=== PATIENT | male | born 1970 ===

== ENCOUNTER 2016-09-10 06:05 | Inpatient (IN) ==
[2016-09-10] MEDS ORDERED: GLUCAGON 1 MG VIAL IM PRN (07:32)
[2016-09-10] MEDS ORDERED: ONDANSETRON 4 MG/2 ML VIAL IV PRN (07:32)
[2016-09-10] MEDS ORDERED: ACETAMINOPHEN 325 MG TABLET PO PRN (07:32)
[2016-09-10] MEDS ORDERED: DEXTROSE 50% 25 GM/50 ML VIAL IV PRN (07:32)
[2016-09-10] MEDS ORDERED: CHLORHEXIDINE 4% SOLN 118 ML BOTTLE TOP ONE (07:36)
[2016-09-10] MEDS ORDERED: SKIN HEALING OINT (AQUAPHOR) 50 GM TUBE TOP PRN (07:36)
--- NOTE | 2016-09-10 08:51 | General Surg History&Physical ---
Assessment and Plan (1) Abscess of right foot Status: Acute Assessment and plan: 09/10/16 Abscess of right plantar foot/heel area. This looks like it involves the deeper structures. He has gotten a CT at [facility], and we will review this as soon as it has been loaded in our Synapse. Our plan is to take him to surgery tomorrow and do some type of unroofing of this abscess he will need debridement at this point we are not able to determine the extent of this and we have explained this to him. We were hoping to avoid making a plantar incision, however we may have to take this approach in order to adequately clear the area of infection. Another consideration is to evaluate this area for possible osteomyelitis. We will also plan to tightly control his glucoses. Patient is not exhibiting any neurological symptoms at this time, so we will just plan watchful waiting at this point and plan to consult hospitalist only if he has any other medical issues. Current Visit: Yes History of Present Illness Chief complaint: Abscess of right plantar foot History of present illness: Mr. Godinez is a 45 year old male Home Medications Medication Instructions Recorded Confirmed Type Aspirin EC Tab 325 mg PO DAILY #100 tablet 12/07/14 08/19/16 Rx Cyanocobalamin Tab [Vitamin B12 1,000 mcg PO DAILY #30 tablet 03/19/15 08/19/16 Rx Tab] Lisinopril [Prinivil] 10 mg PO DAILY tablet 03/19/15 08/19/16 Rx Gabapentin Cap/Tab [Neurontin 100 mg PO BEDTIME 09/22/15 08/19/16 History Cap/Tab] Pantoprazole Tab [Protonix Tab] 40 mg PO DAILY 09/22/15 08/19/16 History Carvedilol [Coreg] 6.25 mg PO BID 07/08/16 08/19/16 History Glimepiride 2 mg PO DAILY 07/08/16 08/19/16 History amLODIPine [Norvasc] 10 mg PO DAILY 07/08/16 08/19/16 History metFORMIN [Glucophage] 500 mg PO BID W/MEALS 07/08/16 08/19/16 History Bacitracin/Polymyxin Oint 1 applic TOP DAILY #1 applic 07/13/16 08/19/16 Rx [Polysporin Oint] Levofloxacin Tab [Levaquin Tab] 500 mg PO DAILY #10 tablet 07/13/16 08/19/16 Rx Acetaminophen Tab [Tylenol Tab] 650 mg PO Q6H PRN #0 tablet 08/24/16 Rx Apixaban [Eliquis] 2.5 mg PO BID #60 tablet 08/24/16 Rx Ciprofloxacin Tab [Cipro Tab] 500 mg PO Q12HR #20 tablet 08/24/16 Rx Collagenase Oint [Santyl Oint] 1 applic TOP DAILY #1 applic 08/24/16 Rx HYDROcodone/ACETAMIN 7.5-325 1 tablet PO Q8H PRN #20 tablet 08/24/16 Rx [[place] 7.5-325] Skin Healing Oint (Aquaphor) 1 applic TOP PRN PRN #0 applic 08/24/16 Rx [Aquaphor] Allergies Allergy/AdvReac Type Severity Reaction Status Date / Time No Known Allergies Allergy Unverified 03/17/15 18:53 Medical,Surgical,& Family Hx - Medical History Cardio: History of: Hypertension, PVD Neurology: History of: Cerebrovascular Accident (PT STATES CVA X 5, NO DEFICEITS ), Peripheral Neuropathy (Secondary to diabetes), TIA No history of: Seizures HEENT: History of: Dental Problems (has stitches from teeth being pulled 2 weeks ago disolving kind) Endocrine: History of: Diabetes Mellitus (IDDM), Dyslipidemia Rheumatology: History of;: Gout Respiratory: No history of: Respiratory Problems Gastrointestinal: History of: Liver Problems (cirrohsis) Musculoskeletal: History of: Amputation - Surgical History Cardiac Surgeries: Patient Denies: Femoral-Popliteal Bypass Graft, Cardiac Catheterization, Cardiac Surgery, Carotid Endarterectomy, Internal Defibrillator, Vascular Access Devices Thoracic Surgeries: Patient denies;: Organ Transplant, Lobectomy Neurologic Surgeries: Patient denies: Neurologic Surgery HEENT Surgeries: Patient denies: Carotid Endarterectomy, Thyroid Surgery, Tonsilectomy & Adenoidectomy Abdominal Surgeries: Surgical HX of: Hernia Repair Patient denies: Splenectomy Reproductive Surgeries: Patient denies;: Genitourinary Surgery Orthopedic Surgeries: Surgical HX of;: Orthopedic Surgery (dr. meyer follows last surgery march) - Family History Family History: Reports;: Family Diabetes, Family Heart Disease, Family Hypertension - Social History Smoking Status: Smoker, status unknown Exam - Constitutional General appearance: no acute distress - Head Head exam: Present: normocephalic - ENT Mouth exam: Present: dry mucosa, other (Poor dentition) - Neck Neck exam: Present: trachea midline. Absent: lymphadenopathy - Respiratory Respiratory exam: Present: clear to auscultation bilaterally. Absent: rales, rhonchi - Cardiovascular Cardiovascular exam: Present: RRR - GI/Abdominal GI/Abdominal exam: Present: hypoactive bowel sounds, soft. Absent: guarding, tenderness - Expanded Left Lower Foot/Toe exam: Present: amputation (Previous left transmetatarsal amputation; he has a 0.6 x 0.6 x 0.2cm lateral/plantar midfoot ulceration that is superficial, and he has a surrounding 1cm callous. There is a small amount of bloody drainage present that is primarily associated with the callus. There is no redness, no induration, no fluctuance, no tenderness present). Absent: swelling Neuro vascular tendon exam: Present: decreased fine/light touch. Absent: pallor Right Lower Foot/Toe exam: Present: erythema (Moderate erythema from the midfoot proximally encompassing the heel. There is at least 2 purpuric papules adjacent to a deep ulcer that is 0.8 x 0.8 x 2cm. It is moderately tender to touch, tense, erythematous, and indurated. Calcaneus tenderness as well as tenderness with plantar flexion; this extends to the achilles tendon and there does appear to be some resolving erythematous skin change present here. No edema of the ankle or leg, no fluctuance outside the plantar heel area. ) Neuro vascular tendon exam: Present: decreased fine/light touch - Neurological Neurological: Absent: dizziness, syncope Quality Measures - VTE Contraindication to Pharmacological VTE Prophylaxis: High Risk of Bleeding
--- NOTE | 2016-09-10 09:41 | EKG Report ---
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
[2016-09-10 10:05] LABS: Basophils % 0.4 % (0.0-0.8); Eosinophils # 0.4 10*3/uL (0.0-0.87); Eosinophils % 4.6 % (0.00-10.9); Hematocrit 33.2 VOL% (42.0-52.0); Hemoglobin 11.4 GM/DL (14.0-18.0); Immature Granulocytes % 0.3 %; Immature Granulocytes Absolute 0.03 #; Lymphocytes # 2.1 10*3/uL (1.4-4.0); Lymphocytes % 21.9 % (21.2-54.2); Mean Corpuscular HGB Conc 34.3 GM/DL (32-36); Mean Corpuscular Hemoglobin 28 PG (27-34); Mean Corpuscular Volume 81.4 FL (87-102); Mean Platelet Volume 10.2 FL (9.6-12.0); Monocytes # 0.7 10*3/uL (0.11-0.8); Monocytes % 7.5 % (1.7-12.7); Neutrophils # 6.2 10*3/uL (1.4-7.4); Neutrophils % 65.3 % (38.7-73.9); Platelet Count 381 T/CUMM (130-400); Red Blood Count 4.08 MC/CUMM (3.8-5.5); Red Cell Distribution Width 13.3 % (9.3-17.3); White Blood Count 9.6 T/CUMM (4-12)
[2016-09-10 10:37] LABS: Albumin 2.6 G/DL (3.4-5.0); Bilirubin,Total 0.4 MG/DL (0.2-1.0); Calcium 8.5 MG/DL (8.5-10.1); Osmolality,Calculated 283.1 MOS/KG (273-304); Total Protein 6.3 G/DL (6.4-8.3)
[2016-09-10] MEDS: SODIUM HYPOCHLORITE 0.25% IRRIG 473 ML BOTTLE TOP SCH (10:46)
[2016-09-10] MEDS: CEFTAROLINE 600 MG in SODIUM CHLORIDE 0.9% 100 ML IV SCH ×2 (10:51→20:41)
[2016-09-10] MEDS: PANTOPRAZOLE 40 MG TABLET PO SCH (10:51)
[2016-09-10] MEDS: SODIUM CHLORIDE 0.45% 1,000 ML IV SCH ×3 (10:51→23:02)
[2016-09-10] MEDS: INSULIN REGULAR 100 UNIT/ML SUBCUT SCH ×3 (11:30→20:41)
--- NOTE | 2016-09-10 15:41 | XRay Report ---
XR chest 2V Indication: Shortness of breath. Chest 2 views: Comparison 07/09/2016. The heart size and mediastinal contour are normal. The lungs and pleural spaces are clear. Bones are unremarkable. Impression: Negative chest. PROCEDURE INTERPRETED AT [facility] DEPARTMENT OF RADIOLOGY Final Report Signed by: Laith Domingo M.D.
[2016-09-11 04:41] LABS: Basophils # 0.1 10*3/uL (0.0-0.2); Basophils % 0.6 % (0.0-0.8); Eosinophils # 0.6 10*3/uL (0.0-0.87); Eosinophils % 7.3 % (0.00-10.9); Hematocrit 31.1 VOL% (42.0-52.0); Hemoglobin 10.3 GM/DL (14.0-18.0); Immature Granulocytes % 0.4 %; Immature Granulocytes Absolute 0.03 #; Lymphocytes # 2.5 10*3/uL (1.4-4.0); Lymphocytes % 30.2 % (21.2-54.2); Mean Corpuscular HGB Conc 33.1 GM/DL (32-36); Mean Corpuscular Hemoglobin 28 PG (27-34); Mean Corpuscular Volume 83.2 FL (87-102); Mean Platelet Volume 10.9 FL (9.6-12.0); Monocytes # 0.7 10*3/uL (0.11-0.8); Monocytes % 8.3 % (1.7-12.7); Neutrophils # 4.4 10*3/uL (1.4-7.4); Neutrophils % 53.2 % (38.7-73.9); Platelet Count 355 T/CUMM (130-400); Red Blood Count 3.74 MC/CUMM (3.8-5.5); Red Cell Distribution Width 13.5 % (9.3-17.3); White Blood Count 8.3 T/CUMM (4-12)
[2016-09-11 05:19] LABS: Albumin 2.2 G/DL (3.4-5.0); Bilirubin,Total 0.6 MG/DL (0.2-1.0); Calcium 8.2 MG/DL (8.5-10.1); Osmolality,Calculated 281.4 MOS/KG (273-304); Potassium 4.2 MMOL/L (3.5-5.1); Total Protein 5.3 G/DL (6.4-8.3)
[2016-09-11] MEDS: INSULIN REGULAR 100 UNIT/ML SUBCUT SCH ×4 (07:57→20:54)
[2016-09-11] MEDS ORDERED: BUPIVACAINE 0.25% 50 ML VIAL ONE ×2 (08:24→08:48)
[2016-09-11] MEDS ORDERED: LIDOCAINE 2% 5 ML VIAL ONE (08:42)
[2016-09-11] MEDS ORDERED: PROPOFOL 200 MG/20 ML VIAL IV ONE (08:42)
--- NOTE | 2016-09-11 09:21 | Operative Note ---
Date of procedure: 09/11/16 Pre-op diagnosis: Diabetic ulcer right foot with abscess Post-op diagnosis: same Procedure: Operative note: Preoperative diagnosis: Diabetic ulcer right heel with abscess Postoperative diagnosis: Same Procedure: Excisional debridement of skin subcutaneous tissue right heel ulcer and abscess Surgeon Dr. Abdi Backend Tester Henrietta Reyez, [facility] Anesthesia managed anesthetic care with local Brief history: 45-year-old male who has had a diabetic ulcer of the right heel which when he was in here recently we were able to debride the ulcer itself along with some tissue underneath of it to get things under control there. He returned with a new area of erythematous and swelling onto the medial aspect of the heel. We felt that all we can do bring him in to try to debride this better and clean it up to in order to get some good care to it. Procedure: With patient supine position prepped and draped in a sterile fashion timeout and antibiotics completed we approach this area of the ulcer itself. The diabetic ulcer at the very bottom of the heel and the plantar surface is 0.8 x 0.6 cm in size and the depth goes deep towards the medial aspect of the heel. At that point we infiltrated with local anesthetic in this area. I then put the hemostat into the ulcer towards the abscessed area on the medial aspect of the heel we made an incision with a knife through the skin subtenons tissue on top of the hemostat to open this up widely. We encountered a large amount of dark necrotic fatty tissue in this area that would begin to debride away at this point taking that tissue for cultures. We then debrided a little extra skin around for there is additional skin changes and ulceration at the medial aspect of the heel. We then debrided the ulcer itself excising the skin around it and any deep necrotic fatty tissue at this time. We debrided until we had a clean bed that we then washed irrigated with saline solution and used electrocauterization control bleeding. We now have a wound that is 6 cm x 1.2 cm x 1.2 cm in size. Dressings were applied and the patient taken recovery room. Estimated blood loss 5 cc Sponge count correct 2 Drains none Complications none Condition stable satisfactory Anesthesia: MAC, local (0.25% Marcaine plain mixed [id number] 1% Xylocaine plain) Surgeon / Physician: Amandeep Abdi Backend Tester: Henrietta Reyez Estimated blood loss: other (5 cc) Specimens: other (Tissue for cultures and pathology) Condition: stable Disposition: floor Results - Labs CBC & BMP: 09/11/16 03:24 09/11/16 03:24 Discharge Plan - Discharge Medications No Action Aspirin EC Tab 325 mg PO DAILY #100 tablet Cyanocobalamin Tab [Vitamin B12 Tab] 1,000 mcg PO DAILY #30 tablet Lisinopril [Prinivil] 10 mg PO DAILY tablet Pantoprazole Tab [Protonix Tab] 40 mg PO DAILY Gabapentin Cap/Tab [Neurontin Cap/Tab] 100 mg PO BEDTIME Glimepiride 2 mg PO DAILY Carvedilol [Coreg] 6.25 mg PO BID amLODIPine [Norvasc] 10 mg PO DAILY Bacitracin/Polymyxin Oint [Polysporin Oint] 1 applic TOP DAILY #1 applic Acetaminophen Tab [Tylenol Tab] 650 mg PO Q6H PRN #0 tablet PRN Reason: Pain Mild (1-3) And/Or Fever Collagenase Oint [Santyl Oint] 1 applic TOP DAILY #1 applic Skin Healing Oint (Aquaphor) [Aquaphor] 1 applic TOP PRN PRN #0 applic PRN Reason: Dry Skin metFORMIN [Glucophage] 500 mg PO BID W/MEALS Apixaban [Eliquis] 2.5 mg PO BID #60 tablet HYDROcodone/ACETAMIN 7.5-325 [[place] 7.5-325] 1 tablet PO Q8H PRN #20 tablet PRN Reason: Pain Moderate (4-7) - Follow Up or Referral - Forms/Instructions
[2016-09-11] MEDS ORDERED: ONDANSETRON 4 MG/2 ML VIAL IV PRN (09:22)
[2016-09-11] MEDS ORDERED: BISACODYL 5 MG TABLET PO PRN (09:22)
--- NOTE | 2016-09-11 09:28 | Anesthesia Post-Op ---
Anesthesia Post OP - Post Ansesthetic Evaluation Patient seen in post op: Yes Resp: within normal limits CV: within normal limits Mental: within normal limits Temp: within normal limits [id number]: within normal limits Nausea and Vomiting: within normal limits Pain: within normal limits
[2016-09-11] MEDS ORDERED: MIDAZOLAM 2 MG/2 ML VIAL ONE (09:31)
[2016-09-11] MEDS ORDERED: fentaNYL 100 MCG/2 ML VIAL ONE (09:31)
[2016-09-11] MEDS ORDERED: SKIN HEALING OINT (AQUAPHOR) 50 GM TUBE TOP PRN (11:01)
[2016-09-11] MEDS: CEFTAROLINE 600 MG in SODIUM CHLORIDE 0.9% 100 ML IV SCH ×2 (11:26→21:39)
[2016-09-11] MEDS: SODIUM CHLORIDE 0.45% 1,000 ML IV SCH ×2 (16:23→19:11)
[2016-09-11] MEDS: PANTOPRAZOLE 40 MG TABLET PO SCH (16:24)
[2016-09-11] MEDS: ceFAZolin 2,000 MG in PREMIX 1 EACH IV SCH ×2 (16:25→22:59)
[2016-09-11] MEDS: SODIUM HYPOCHLORITE 0.25% IRRIG 473 ML BOTTLE TOP SCH (16:27)
[2016-09-11] MEDS: CARVEDILOL 6.25 MG TABLET PO SCH (21:38)
[2016-09-11] MEDS: GABAPENTIN 100 MG CAPSULE PO SCH (21:39)
[2016-09-12] MEDS: SODIUM CHLORIDE 0.45% 1,000 ML IV SCH ×3 (01:19→17:33)
[2016-09-12] MEDS: ENOXAPARIN 40 MG/0.4 ML SYRINGE SUBCUT SCH (04:20)
[2016-09-12 06:11] LABS: Basophils # 0.1 10*3/uL (0.0-0.2); Basophils % 0.5 % (0.0-0.8); Eosinophils # 0.7 10*3/uL (0.0-0.87); Hematocrit 29.8 VOL% (42.0-52.0); Hemoglobin 9.8 GM/DL (14.0-18.0); Immature Granulocytes % 0.2 %; Immature Granulocytes Absolute 0.02 #; Lymphocytes # 2.7 10*3/uL (1.4-4.0); Lymphocytes % 26.9 % (21.2-54.2); Mean Corpuscular HGB Conc 32.9 GM/DL (32-36); Mean Corpuscular Hemoglobin 28 PG (27-34); Mean Corpuscular Volume 84.2 FL (87-102); Mean Platelet Volume 10.8 FL (9.6-12.0); Monocytes # 0.7 10*3/uL (0.11-0.8); Monocytes % 7.3 % (1.7-12.7); Neutrophils # 5.8 10*3/uL (1.4-7.4); Neutrophils % 58.1 % (38.7-73.9); Platelet Count 351 T/CUMM (130-400); Red Blood Count 3.54 MC/CUMM (3.8-5.5); Red Cell Distribution Width 13.6 % (9.3-17.3)
[2016-09-12 07:02] LABS: Calcium 7.9 MG/DL (8.5-10.1); Osmolality,Calculated 282.1 MOS/KG (273-304); Potassium 4.3 MMOL/L (3.5-5.1)
[2016-09-12] MEDS: INSULIN REGULAR 100 UNIT/ML SUBCUT SCH ×4 (08:43→21:05)
[2016-09-12] MEDS: CEFTAROLINE 600 MG in SODIUM CHLORIDE 0.9% 100 ML IV SCH ×2 (09:29→21:38)
[2016-09-12] MEDS: LISINOPRIL 10 MG TABLET PO SCH (09:31)
[2016-09-12] MEDS: ASPIRIN EC 325 MG TABLET PO SCH (09:32)
[2016-09-12] MEDS: CARVEDILOL 6.25 MG TABLET PO SCH ×2 (09:32→21:08)
[2016-09-12] MEDS: amLODIPine 10 MG TABLET PO SCH (09:32)
[2016-09-12] MEDS: PANTOPRAZOLE 40 MG TABLET PO SCH (09:33)
[2016-09-12] MEDS: CYANOCOBALAMIN 500 MCG TABLET PO SCH (09:33)
[2016-09-12] MEDS: GLIMEPIRIDE 2 MG TABLET PO SCH (09:33)
[2016-09-12] MEDS: HYDROmorphone 2 MG/1 ML VIAL IV PRN ×2 (09:39→19:49)
[2016-09-12] MEDS: BACITRACIN/POLYMYXIN OINT 14.17 GM TUBE TOP SCH (09:46)
--- NOTE | 2016-09-12 11:29 | Event Note ---
09/12/2016 Patient is afebrile he is postop from debridement of this right heel abscess. Wound care starting today and cultures are pending. Will maintain present level of care until we can see what his cultures are and modify things from there.
[2016-09-12] MEDS: SODIUM HYPOCHLORITE 0.25% IRRIG 473 ML BOTTLE TOP SCH (12:50)
[2016-09-12] MEDS: GABAPENTIN 100 MG CAPSULE PO SCH (21:08)
[2016-09-13] MEDS: SODIUM CHLORIDE 0.45% 1,000 ML IV SCH ×3 (01:42→19:53)
[2016-09-13] MEDS: ENOXAPARIN 40 MG/0.4 ML SYRINGE SUBCUT SCH (03:34)
[2016-09-13] MEDS: INSULIN REGULAR 100 UNIT/ML SUBCUT SCH ×4 (07:30→21:30)
--- NOTE | 2016-09-13 09:21 | Event Note ---
09/13/2016. Patient is doing fairly well at this time, see if we can get him a special shoe to try to offload the weight on that heel. Cultures are still pending and hopefully that will be out tomorrow to know what antibiotics to send him home alone. Be difficult to arrange for good care on this patient at this time due to his general circumstances but will see what we can do to get him set up with [facility] an attempt to get consistent care to this area.
[2016-09-13] MEDS: GLIMEPIRIDE 2 MG TABLET PO SCH (11:41)
[2016-09-13] MEDS: CYANOCOBALAMIN 500 MCG TABLET PO SCH (11:51)
[2016-09-13] MEDS: ASPIRIN EC 325 MG TABLET PO SCH (11:52)
[2016-09-13] MEDS: CARVEDILOL 6.25 MG TABLET PO SCH ×2 (11:52→20:41)
[2016-09-13] MEDS: LISINOPRIL 10 MG TABLET PO SCH (11:53)
[2016-09-13] MEDS: amLODIPine 10 MG TABLET PO SCH (11:53)
[2016-09-13] MEDS: PANTOPRAZOLE 40 MG TABLET PO SCH (11:54)
[2016-09-13] MEDS: CEFTAROLINE 600 MG in SODIUM CHLORIDE 0.9% 100 ML IV SCH ×2 (11:54→20:42)
[2016-09-13] MEDS: GABAPENTIN 100 MG CAPSULE PO SCH (20:41)
[2016-09-14] MEDS: BACITRACIN/POLYMYXIN OINT 14.17 GM TUBE TOP SCH ×2 (01:28→11:24)
[2016-09-14] MEDS: SODIUM HYPOCHLORITE 0.25% IRRIG 473 ML BOTTLE TOP SCH ×2 (01:28→11:23)
[2016-09-14] MEDS: ENOXAPARIN 40 MG/0.4 ML SYRINGE SUBCUT SCH (03:03)
[2016-09-14] MEDS: SODIUM CHLORIDE 0.45% 1,000 ML IV SCH ×2 (06:23→13:15)
[2016-09-14 06:44] LABS: Basophils # 0.1 10*3/uL (0.0-0.2); Basophils % 0.6 % (0.0-0.8); Eosinophils # 0.7 10*3/uL (0.0-0.87); Eosinophils % 7.7 % (0.00-10.9); Hematocrit 29.5 VOL% (42.0-52.0); Hemoglobin 9.7 GM/DL (14.0-18.0); Immature Granulocytes % 0.5 %; Immature Granulocytes Absolute 0.04 #; Lymphocytes # 2.6 10*3/uL (1.4-4.0); Mean Corpuscular HGB Conc 32.9 GM/DL (32-36); Mean Corpuscular Hemoglobin 28 PG (27-34); Mean Corpuscular Volume 84.8 FL (87-102); Mean Platelet Volume 10.8 FL (9.6-12.0); Monocytes # 0.6 10*3/uL (0.11-0.8); Monocytes % 6.5 % (1.7-12.7); Neutrophils # 4.8 10*3/uL (1.4-7.4); Neutrophils % 54.7 % (38.7-73.9); Platelet Count 346 T/CUMM (130-400); Red Blood Count 3.48 MC/CUMM (3.8-5.5); Red Cell Distribution Width 13.9 % (9.3-17.3); White Blood Count 8.8 T/CUMM (4-12)
[2016-09-14 07:11] LABS: Calcium 8.3 MG/DL (8.5-10.1); Magnesium 2.2 MG/DL (1.8-2.4); Potassium 4.2 MMOL/L (3.5-5.1)
[2016-09-14] MEDS: INSULIN REGULAR 100 UNIT/ML SUBCUT SCH ×4 (08:26→21:15)
[2016-09-14] MEDS: ASPIRIN EC 325 MG TABLET PO SCH (08:47)
[2016-09-14] MEDS: PANTOPRAZOLE 40 MG TABLET PO SCH (08:47)
[2016-09-14] MEDS: CYANOCOBALAMIN 500 MCG TABLET PO SCH (08:47)
[2016-09-14] MEDS: amLODIPine 10 MG TABLET PO SCH (08:47)
[2016-09-14] MEDS: CARVEDILOL 6.25 MG TABLET PO SCH ×2 (08:47→21:17)
[2016-09-14] MEDS: LISINOPRIL 10 MG TABLET PO SCH (08:47)
[2016-09-14] MEDS: CEFTAROLINE 600 MG in SODIUM CHLORIDE 0.9% 100 ML IV SCH ×2 (08:47→21:17)
[2016-09-14] MEDS: GLIMEPIRIDE 2 MG TABLET PO SCH (09:32)
--- NOTE | 2016-09-14 11:24 | Pathology Report from [facility] ---
ACCESSION # : [id number] PATIENT NAME : Tien Dexter ORDERING DR : CANDY HINKLE MD CLINICAL HX: Right foot abscess POST-OP DX: Same SPECIMEN INFO: Right heel tissue GROSS DESCRIPTION: The specimen is received in formalin labeled "TIEN DEXTER /RIGHT HEEL" consists of a 2.9 x 0.6 x 0.7 cm debrided regalado-pink fragments of skin. Also in container are is a 2.5 x 0.8 x 0.7 cm regalado-sanders fragment of skin. Health Assessment And Treatment Teacher sections of each are submitted in one cassette. DIAGNOSIS FOR TIEN DEXTER: RIGHT HEEL, DEBRIDEMENT: Skin ulceration with reactive epithelial hyperplasia and cellulitis. SERVICE DATE: 09/11/2016 REPORT DATE: 09/14/2016 PATHOLOGIST: French Luu M.D. [facility]
--- NOTE | 2016-09-14 11:57 | General Surgery Progress Note ---
Assessment and Plan - Time spent with patient Time spent with patient: Less than 30 minutes (1) Abscess of right foot Status: Acute Assessment and plan: 09/14/2016 Abscess of right foot is improving postop. He seems to be doing well, and we are now awaiting the final cultures. We have also ordered offloading Darco shoes, and he will need these before we discharge. I am planning to trim the callus on the left transmetatarsal stump before he goes as well. Looking at discharge tomorrow. 09/10/16 Abscess of right plantar foot/heel area. This looks like it involves the deeper structures. He has gotten a CT at [facility], and we will review this as soon as it has been loaded in our Synapse. Our plan is to take him to surgery tomorrow and do some type of unroofing of this abscess he will need debridement at this point we are not able to determine the extent of this and we have explained this to him. We were hoping to avoid making a plantar incision, however we may have to take this approach in order to adequately clear the area of infection. Another consideration is to evaluate this area for possible osteomyelitis. We will also plan to tightly control his glucoses. Patient is not exhibiting any neurological symptoms at this time, so we will just plan watchful waiting at this point and plan to consult hospitalist only if he has any other medical issues. Current Visit: Yes Subjective Patient reports: Present: no new complaints, feels better, pain is less, tolerating a regular diet Exam - Constitutional Vitals: Period Temp Pulse Resp BP Sys/Grande Pulse Ox Last 24 Hr 97.5 F-98.8 F 68-76 17-20 124-169/73-100 91-100 General appearance: no acute distress - Extremities Exam Extremities exam: Present: other (Right lower extremity wound is clean with a pink base. The wound bed shows signs of early granulation. There is no erythema, no induration. I see no gross purulence. It is not unusually tender. There is no edema of the extremity. Left lower extremity with a small firm callus area on the plantar surface of the left transmetatarsal amputation site. There is a small superficial ulcer that looks clean, however, unable to evaluate this well due to callus. This needs to be trimmed before he leaves.) Results - Labs CBC & BMP: 09/14/16 05:27 05/08/17 05:27 Lab Results: I have reviewed the past 24 hour labs (Labs are stable. Microbe preliminary shows gram positives.) Quality Measures - VTE Contraindication to Mechanical VTE Prophylaxis: Vascular Ulceration
[2016-09-14] MEDS: GABAPENTIN 100 MG CAPSULE PO SCH (21:17)
[2016-09-15] MEDS: ENOXAPARIN 40 MG/0.4 ML SYRINGE SUBCUT SCH (03:47)
[2016-09-15] MEDS: SODIUM CHLORIDE 0.45% 1,000 ML IV SCH ×2 (06:17→07:01)
[2016-09-15] MEDS: INSULIN REGULAR 100 UNIT/ML SUBCUT SCH ×2 (08:02→11:42)
[2016-09-15] MEDS: amLODIPine 10 MG TABLET PO SCH (08:54)
[2016-09-15] MEDS: CYANOCOBALAMIN 500 MCG TABLET PO SCH (08:54)
[2016-09-15] MEDS: LISINOPRIL 10 MG TABLET PO SCH (08:54)
[2016-09-15] MEDS: CARVEDILOL 6.25 MG TABLET PO SCH (08:54)
[2016-09-15] MEDS: PANTOPRAZOLE 40 MG TABLET PO SCH (08:54)
[2016-09-15] MEDS: CEFTAROLINE 600 MG in SODIUM CHLORIDE 0.9% 100 ML IV SCH (08:55)
[2016-09-15] MEDS: GLIMEPIRIDE 2 MG TABLET PO SCH (08:55)
[2016-09-15] MEDS: ASPIRIN EC 325 MG TABLET PO SCH (08:55)
--- NOTE | 2016-09-15 10:33 | Discharge Summary ---
Hospital Course - Hospital Course Hospital Course: Brief summary: This 45-year-old [place] diabetic male with prior history of CVA and left transmetatarsal amputation for PAD and diabetic foot ulcers was admitted as a direct admit from [facility]. He had been seen their clinic and found to have recurrent right heel abscess. He was evaluated as an outpatient by Dr. Rosa, who notified our office that the area seemed to be worsening and was found to be more fluctuant. On the day prior to admission did obtain an outpatient CT scan of the right lower extremity. The patient presented to the hospital with copy of his CT film, which upon review did show soft tissue swelling and abscess in the area of the right plantar heel. There was nothing on this scan to suggest osteomyelitis. He was admitted placed on IV antibiotics, and the preceeding day was taken to the OR, where an area of abscess was drained, with very little purulence initially encountered, however there was a good deal of chronically infected necrotic tissue found deep within the wound. This tissue was sent for culture, and the wound debrided with excisional debridement of the necrotic tissue skin and subcutaneous tissue in the deeper tissue about the ulcer. Postoperatively his blood sugars remained fairly well controlled, & he had no neurological signs and symptoms. Wound care was begun, and he initially had a good deal of discomfort with this, however he said he was able to tolerate it quite well. He was continued on Teflaro during his hospital course, and upon initiation of wound care, we were able to see the wound erythema resolved within the first 24-48 hours, no further necrotic tissue or purulence, and the swelling and tenderness also resolved. Medically he did remain stable with labs and vital signs returned to normal. Today we did have a preliminary culture that still shows gram-positive cocci, this has not had a final identification. We do have a final sensitivity showing on a staph epidermidis, however we are limited by the fact that there are only 3 medications that we might use for this, with the only p.o. choice being Zyvox. With the wound having responded well to the surgical drainage and debridement, and having a suitable p.o. antibiotic choice, we feel he has reached his maximum benefit from acute care facility, and therefore we will discharge him back to the care of his family and [facility] for outpatient wound care. He will be restarted on all his previous home medications, and we will add p.o. Zyvox 1 tablet p.o. twice daily for 1 week. We will plan to follow it up in our office in approximately 3 weeks unless there are problems sooner. - Time spent with patient Time with patient DS: Greater than 30 minutes Diagnosis - Discharge Diagnosis (1) Abscess of right foot Status: Acute (2) Abscess and cellulitis Status: Acute (3) Peripheral angiopathy due to DM Status: Chronic (4) Hypertension Status: Chronic (5) Diabetic ulcer of right foot associated with diabetes mellitus due to underlying condition Status: Acute Specialty Discharge - Follow Up or Referrals Follow up with: Amandeep Abdi MD [Family Provider] - (3 weeks) Discharge Plan - Discharge Data Disposition: Disch To Home/Self Care Condition at Discharge: Stable Discharge Diet: diabetic diet Activity: other (Use wheelchair as much as possible. Wear cast shoes to the left and custom Darco shoe to the right anytime you are on your feet.) Hygiene: may shower Weight Bearing at Discharge: other (See activity above.) Contact your physician if you experience:: fever over 101, Redness or swelling Wound / Dressing Care Instructions: Send a copy of the current wound care orders to [facility]. - Discharge Medications New Skin Healing Oint (Aquaphor) [Aquaphor] 1 applic TOP PRN PRN #1 applic PRN Reason: Dry Skin Sodium Hypochlorite 0.25% Irr [Dakins 1/2 Strength 0.25% Soln] 1 applic TOP DAILY #1 applic Linezolid Tab [Zyvox Tab] 600 mg PO Q12HR #14 tablet Continue Aspirin EC Tab 325 mg PO DAILY #100 tablet Cyanocobalamin Tab [Vitamin B12 Tab] 1,000 mcg PO DAILY #30 tablet Lisinopril [Prinivil] 10 mg PO DAILY tablet Pantoprazole Tab [Protonix Tab] 40 mg PO DAILY Gabapentin Cap/Tab [Neurontin Cap/Tab] 100 mg PO BEDTIME Glimepiride 2 mg PO DAILY Carvedilol [Coreg] 6.25 mg PO BID amLODIPine [Norvasc] 10 mg PO DAILY Bacitracin/Polymyxin Oint [Polysporin Oint] 1 applic TOP DAILY #1 applic Acetaminophen Tab [Tylenol Tab] 650 mg PO Q6H PRN #0 tablet PRN Reason: Pain Mild (1-3) And/Or Fever Collagenase Oint [Santyl Oint] 1 applic TOP DAILY #1 applic Skin Healing Oint (Aquaphor) [Aquaphor] 1 applic TOP PRN PRN #0 applic PRN Reason: Dry Skin metFORMIN [Glucophage] 500 mg PO BID W/MEALS Apixaban [Eliquis] 2.5 mg PO BID #60 tablet HYDROcodone/ACETAMIN 7.5-325 [[place] 7.5-325] 1 tablet PO Q8H PRN #20 tablet PRN Reason: Pain Moderate (4-7) - Follow Up or Referral Follow Up: Amandeep Abdi MD [Family Provider] - - Forms/Instructions Exam - Constitutional Vitals: Period Temp Pulse Resp BP Sys/Grande Pulse Ox Last 24 Hr 97.7 F-99.0 F 57-74 16-20 137-165/75-83 94-99 General appearance: normal weight, no acute distress - Head Head exam: Present: normocephalic - Respiratory Respiratory exam: Present: clear to auscultation bilaterally - Cardiovascular Cardiovascular exam: Present: regular rate and rhythm - GI/Abdominal GI/Abdominal exam: Present: hypoactive bowel sounds, soft. Absent: tenderness - Extremities Exam Extremities exam: Present: other (Right foot incision at the medial aspect of the heel is clean and dry. There is no gross purulence. There is no induration. There is no erythema. He has good mobility of the ankle and heel. No swelling of the extremity. Left plantar foot with small callus and a 0.8 x 0.2 cm central superficial ulceration. There is no redness or drainage associated with this ulcer, however there is a small callus associated which was debrided in the room using a 15-gauge scalpel. There is no swelling to this extremity and I see no other breakdown of the transmetatarsal stump.) - Neurological Exam Neurological exam: Present: alert, oriented X3 Discharge Results Procedures and tests throughout hospitalization: Pending Orders 09/11/16 Tissue (Biopsy) Culture and GS Routine Labs on day of discharge: Labs from last 24 hours 09/15/16 09/14/16 09/14/16 07:10 19:57 16:20 POC Glucose 82 90 166 H 09/14/16 11:09 POC Glucose 98 Preliminary micro results at discharge 09/11/16 Unknown Tissue Culture - Preliminary Foot - Rt Lower Staphylococcus epidermidis MRS Gram Positive Cocci DS: Provider Date of admission: 09/11/16 09:22 Primary care physician: Garrick Artis MD Attending physician on admission: Amandeep Abdi MD Consults: 09/10/16 07:35 Consult to Wound Care [facility] [CONS] Routine Reason for Wound Care: Wound Care Management 09/10/16 08:16 Consult to Pharmacy [CONS] Routine Reason for Pharmacy Consult: Adjust Meds Renal Funct 09/10/16 09:08 Consult to Anesthesiology [CONS] Routine Consulting Provider: Reason for Anesthesiology: Pre-op Clearance 09/10/16 11:01 Consult to Pastoral Services [CONS] Routine Comment: Pastoral Screen: Request 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
[2016-09-15] MEDS: SODIUM HYPOCHLORITE 0.25% IRRIG 473 ML BOTTLE TOP SCH (15:10)
[2016-09-15] MEDS: BACITRACIN/POLYMYXIN OINT 14.17 GM TUBE TOP SCH (15:10)
[2016-09-15 17:36] VITALS: BP 147/77
== END 2016-09-15 16:04 | disposition home or self-care (01) | DRG 380 ==
LOC: N.3E → EDSTATUS 06:28
PROVIDERS: ADMIT Specialist; ATTEND Specialist

== ENCOUNTER 2020-08-05 15:22 | Inpatient (IN) ==
[2020-08-05] MEDS ORDERED: SODIUM CHLORIDE 0.9% 1,000 ML IV STA (16:08)
[2020-08-05] MEDS ORDERED: ALBUTEROL 2.5 MG/3 ML NEB RESP TX STA (16:10)
[2020-08-05 16:40] LABS: Basophils # 0.1 10*3/uL (0.0-0.2); Basophils % 0.2 % (0.0-0.8); Hematocrit 32.6 VOL% (42.0-52.0); Hemoglobin 10.7 GM/DL (14.0-18.0); Immature Granulocytes % 1.2 %; Immature Granulocytes Absolute 0.32 #; Lymphocytes # 1.2 10*3/uL (1.4-4.0); Lymphocytes % 4.4 % (21.2-54.2); Mean Corpuscular HGB Conc 32.8 GM/DL (32-36); Mean Platelet Volume 11.2 FL (9.6-12.0); Monocytes % 2.6 % (1.7-12.7); Neutrophils % 91.6 % (38.7-73.9); Platelet Count 245 T/CUMM (130-400); Red Blood Count 3.79 MC/CUMM (3.8-5.5); Red Cell Distribution Width 14.1 % (9.3-17.3); White Blood Count 26.6 T/CUMM (4-12)
[2020-08-05] MEDS ORDERED: LEVOFLOXACIN INJ 750 MG in PREMIX 1 EACH IV STA (16:41)
[2020-08-05 17:04] LABS: Albumin 2.1 G/DL (3.4-5.0); Bilirubin,Total 2.4 MG/DL (0.2-1.0); Calcium 7.4 MG/DL (8.5-10.1); Osmolality,Calculated 283.8 MOS/KG (273-304); Potassium 3.6 MMOL/L (3.5-5.1); Total Protein 5.8 G/DL (6.4-8.2)
[2020-08-05] MEDS ORDERED: ACETAMINOPHEN 500 MG TABLET PO STA (17:15)
[2020-08-05 17:20] LABS: Band Neutrophils 1 % (0-10); Hypochromasia 1+; Lymphocytes 5 % (20-55); Microcytosis 1+; Platelet Estimate Adequate; Segmented Neutrophils 92 % (50-85); Total Cells Counted 100
[2020-08-05] MEDS ORDERED: NITROGLYCERIN 2% OINT 1 INCH/GM PACK TOP ONE (17:25)
[2020-08-05] MEDS ORDERED: NITROGLYCERIN 2% OINT 1 INCH/GM PACK TOP STA (17:25)
[2020-08-05] MEDS ORDERED: ENOXAPARIN 100 MG/ML SYRINGE SUBCUT STA (17:25)
[2020-08-05] MEDS ORDERED: ENOXAPARIN 100 MG/ML SYRINGE SUBCUT ONE (17:25)
[2020-08-05] MEDS ORDERED: ASPIRIN 325 MG TABLET ONE (17:25)
[2020-08-05] MEDS ORDERED: ASPIRIN 325 MG TABLET PO STA (17:25)
[2020-08-05] MEDS ORDERED: DEXTROSE 50% 25 GM/50 ML VIAL IV PRN (17:33)
[2020-08-05] MEDS ORDERED: GLUCAGON 1 MG VIAL IM PRN (17:33)
[2020-08-05 17:40] LABS: INR 1.2; PT Patient Result 12.8 SECS (9.8-11.9)
[2020-08-05] MEDS ORDERED: NITROGLYCERIN SL 0.4 MG TABLET SL PRN (17:51)
[2020-08-05] MEDS ORDERED: NICOTINE 14 MG/24 HR PATCH TRANSDERM PRN (18:35)
[2020-08-05] MEDS ORDERED: carvediloL 6.25 MG TABLET PO SCH (21:00)
[2020-08-05] MEDS: carvediloL 6.25 MG TABLET PO SCH (21:30)
[2020-08-05] MEDS: POTASSIUM CHLORIDE INJ 10 MEQ in LACTATED RINGERS 1,000 ML IV SCH (22:31)
[2020-08-05] MEDS: LINEZOLID INJ 600 MG in PREMIX 1 EACH IV SCH (22:34)
[2020-08-06 00:27] LABS: Amorphous Crystals,Urine Few /HPF (Few); Bilirubin,Urine Negative (Negative); Blood, Urine Large mg/dL (Negative); Glucose,Urine (UA) 150 mg/dL (Negative); Hyaline Casts,Urine 1 /LPF (0-3); Ketones,Urine Negative (Negative); Nitrite,Urine Negative (Negative); Protein,Urine >=500 MG/DL; Sperm,Urine Occasional /HPF (Negative); Squamous Epithelial Cell,Urine Occasional /HPF (0-10); Urine Appearance CLOUDY (Clear); Urine Color Amber (Yellow); Urine Specific Gravity 1.022 (1.001-1.035); Urine Urobilinogen < 2.0 EU/DL (0.2-1.0)
[2020-08-06 04:28] LABS: Basophils # 0.1 10*3/uL (0.0-0.2); Basophils % 0.2 % (0.0-0.8); Hematocrit 27.4 VOL% (42.0-52.0); Immature Granulocytes % 0.6 %; Immature Granulocytes Absolute 0.14 #; Lymphocytes # 1.7 10*3/uL (1.4-4.0); Mean Corpuscular HGB Conc 32.8 GM/DL (32-36); Mean Corpuscular Volume 84.8 FL (87-102); Mean Platelet Volume 11.7 FL (9.6-12.0); Monocytes % 4.5 % (1.7-12.7); Neutrophils % 86.7 % (38.7-73.9); Platelet Count 208 T/CUMM (130-400); Red Blood Count 3.23 MC/CUMM (3.8-5.5); Red Cell Distribution Width 13.9 % (9.3-17.3); White Blood Count 21.8 T/CUMM (4-12)
[2020-08-06 04:54] LABS: Albumin 1.7 G/DL (3.4-5.0); Calcium 6.8 MG/DL (8.5-10.1); Potassium 3.6 MMOL/L (3.5-5.1); Risk Ratio 4.46; Thyroid Stimulating Hormone 3.7 uIU/ml (0.358-3.74); Total Protein 5.5 G/DL (6.4-8.2); VLDL CHOLESTEROL 29.2 MG/DL
[2020-08-06 05:08] LABS: Band Neutrophils 1 % (0-10); Eosinophils 1 % (0-10); Hypochromasia 1+; Lymphocytes 8 % (20-55); Microcytosis 1+; Platelet Estimate Adequate; Segmented Neutrophils 85 % (50-85); Total Cells Counted 100
[2020-08-06] MEDS: INSULIN LISPRO 100 UNIT/ML SUBCUT SCH ×5 (07:30→21:07)
[2020-08-06] MEDS ORDERED: MAGNESIUM SULF RIDER 4 GM in PREMIX 1 EACH IV ONE (07:57)
[2020-08-06] MEDS: POTASSIUM CHLORIDE INJ 10 MEQ in LACTATED RINGERS 1,000 ML IV SCH (08:34)
[2020-08-06] MEDS ORDERED: amLODIPine 5 MG TABLET PO SCH (09:00)
[2020-08-06] MEDS: PANTOPRAZOLE 40 MG TABLET PO SCH (09:40)
[2020-08-06] MEDS: LINEZOLID INJ 600 MG in PREMIX 1 EACH IV SCH ×2 (09:40→21:07)
[2020-08-06] MEDS: ASPIRIN CHEW 81 MG TABLET PO SCH (09:40)
[2020-08-06] MEDS: GABAPENTIN 100 MG CAPSULE PO SCH ×5 (09:50→21:07)
[2020-08-06] MEDS: carvediloL 6.25 MG TABLET PO SCH ×3 (13:53→21:07)
[2020-08-06 14:55] LABS: Calcium 7.2 MG/DL (8.5-10.1); Osmolality,Calculated 279.4 MOS/KG (273-304); Potassium 3.7 MMOL/L (3.5-5.1)
[2020-08-06] MEDS: ISOSORBIDE MONONITRATE 30 MG TABLET PO SCH ×2 (15:47→16:10)
[2020-08-06] MEDS: ENOXAPARIN 100 MG/ML SYRINGE SUBCUT SCH (17:51)
[2020-08-06] MEDS: ATORVASTATIN 40 MG TABLET PO SCH ×2 (21:07)
[2020-08-07 05:22] LABS: Basophils % 0.2 % (0.0-0.8); Hemoglobin 7.7 GM/DL (14.0-18.0); Immature Granulocytes % 0.8 %; Immature Granulocytes Absolute 0.16 #; Lymphocytes # 1.6 10*3/uL (1.4-4.0); Lymphocytes % 8.2 % (21.2-54.2); Mean Corpuscular HGB Conc 32.1 GM/DL (32-36); Mean Corpuscular Volume 88.2 FL (87-102); Mean Platelet Volume 12.2 FL (9.6-12.0); Monocytes % 4.5 % (1.7-12.7); Neutrophils % 86.3 % (38.7-73.9); Platelet Count 193 T/CUMM (130-400); Red Blood Count 2.72 MC/CUMM (3.8-5.5); Red Cell Distribution Width 14.6 % (9.3-17.3); White Blood Count 19.6 T/CUMM (4-12)
[2020-08-07 05:42] LABS: Calcium 6.8 MG/DL (8.5-10.1); Osmolality,Calculated 276.8 MOS/KG (273-304); Potassium 4.3 MMOL/L (3.5-5.1)
[2020-08-07] MEDS: ALBUTEROL 0.63 MG/3 ML NEB RESP TX SCH ×3 (07:18→20:15)
[2020-08-07] MEDS: GABAPENTIN 100 MG CAPSULE PO SCH ×3 (08:59→22:58)
[2020-08-07] MEDS: ASPIRIN CHEW 81 MG TABLET PO SCH (08:59)
[2020-08-07] MEDS: PANTOPRAZOLE 40 MG TABLET PO SCH (09:00)
[2020-08-07] MEDS: INSULIN LISPRO 100 UNIT/ML SUBCUT SCH ×4 (09:01→23:00)
[2020-08-07] MEDS ORDERED: SODIUM CHLORIDE 0.9% 1,000 ML IV PRN (09:01)
[2020-08-07] MEDS: carvediloL 3.125 MG TABLET PO SCH ×2 (09:33→23:01)
[2020-08-07] MEDS: LINEZOLID INJ 600 MG in PREMIX 1 EACH IV SCH ×2 (09:34→23:01)
[2020-08-07] MEDS: carvediloL 6.25 MG TABLET PO SCH (10:14)
[2020-08-07] MEDS: ONDANSETRON 4 MG/2 ML VIAL IV PRN ×2 (13:40→18:19)
[2020-08-07] MEDS ORDERED: LEVOFLOXACIN INJ 750 MG in PREMIX 1 EACH IV SCH (18:00)
[2020-08-07] MEDS: ENOXAPARIN 100 MG/ML SYRINGE SUBCUT SCH (18:10)
[2020-08-07] MEDS: SODIUM CHLORIDE 0.9% 1,000 ML IV SCH (18:11)
[2020-08-07] MEDS: ATORVASTATIN 40 MG TABLET PO SCH (22:58)
[2020-08-08] MEDS: ALBUTEROL 0.63 MG/3 ML NEB RESP TX SCH ×4 (01:42→19:26)
[2020-08-08 05:30] LABS: Basophils % 0.1 % (0.0-0.8); Eosinophils % 0.2 % (0.00-10.9); Hematocrit 28.4 VOL% (42.0-52.0); Hemoglobin 9.2 GM/DL (14.0-18.0); Immature Granulocytes % 0.9 %; Immature Granulocytes Absolute 0.11 #; Lymphocytes # 1.7 10*3/uL (1.4-4.0); Lymphocytes % 14.2 % (21.2-54.2); Mean Corpuscular HGB Conc 32.4 GM/DL (32-36); Mean Corpuscular Volume 87.9 FL (87-102); Mean Platelet Volume 11.6 FL (9.6-12.0); NRBC # 0.03 10*3/uL; Neutrophils % 80.6 % (38.7-73.9); Platelet Count 191 T/CUMM (130-400); Red Blood Count 3.23 MC/CUMM (3.8-5.5); Red Cell Distribution Width 14.6 % (9.3-17.3); White Blood Count 12.1 T/CUMM (4-12)
[2020-08-08 05:49] LABS: Calcium 6.6 MG/DL (8.5-10.1); Osmolality,Calculated 275.2 MOS/KG (273-304); Potassium 4.2 MMOL/L (3.5-5.1)
[2020-08-08] MEDS: carvediloL 3.125 MG TABLET PO SCH ×2 (08:37→21:55)
[2020-08-08] MEDS: PANTOPRAZOLE 40 MG TABLET PO SCH (08:37)
[2020-08-08] MEDS: GABAPENTIN 100 MG CAPSULE PO SCH ×3 (08:37→21:55)
[2020-08-08] MEDS: ASPIRIN CHEW 81 MG TABLET PO SCH (08:37)
[2020-08-08] MEDS: INSULIN LISPRO 100 UNIT/ML SUBCUT SCH ×4 (08:38→21:58)
[2020-08-08] MEDS: LINEZOLID INJ 600 MG in PREMIX 1 EACH IV SCH ×2 (08:40→21:54)
[2020-08-08] MEDS: ENOXAPARIN 30 MG/0.3 ML SYRINGE SUBCUT SCH (12:26)
[2020-08-08] MEDS: SODIUM CHLORIDE 0.9% 1,000 ML IV SCH (13:15)
[2020-08-08 15:27] LABS: Amorphous Crystals,Urine Occasional /HPF (Few); Bacteria,Urine Occasional /HPF (Few); Bilirubin,Urine Negative (Negative); Blood, Urine Small mg/dL (Negative); Glucose,Urine (UA) 50 mg/dL (Negative); Hyaline Casts,Urine 23 /LPF (0-3); Ketones,Urine Negative (Negative); Nitrite,Urine Negative (Negative); Protein,Urine 100 MG/DL; Squamous Epithelial Cell,Urine Occasional /HPF (0-10); Urine Appearance CLOUDY (Clear); Urine Color Amber (Yellow); Urine Specific Gravity 1.017 (1.001-1.035); WBC,Urine 9 /HPF (0-6)
[2020-08-08] MEDS: SODIUM BICARBONATE 650 MG TABLET PO SCH ×2 (15:38→21:56)
[2020-08-08] MEDS: ATORVASTATIN 40 MG TABLET PO SCH (21:55)
[2020-08-09] MEDS: ALBUTEROL 0.63 MG/3 ML NEB RESP TX SCH ×4 (00:18→19:09)
[2020-08-09] MEDS: SODIUM CHLORIDE 0.9% 1,000 ML IV SCH (03:08)
[2020-08-09 05:18] LABS: Basophils % 0.3 % (0.0-0.8); Eosinophils # 0.1 10*3/uL (0.0-0.87); Eosinophils % 0.6 % (0.00-10.9); Hematocrit 27.9 VOL% (42.0-52.0); Hemoglobin 9.2 GM/DL (14.0-18.0); Immature Granulocytes % 2.3 %; Immature Granulocytes Absolute 0.24 #; Lymphocytes # 1.9 10*3/uL (1.4-4.0); Lymphocytes % 18.7 % (21.2-54.2); Mean Corpuscular Volume 85.3 FL (87-102); Mean Platelet Volume 11.6 FL (9.6-12.0); Monocytes % 5.4 % (1.7-12.7); NRBC # 0.04 10*3/uL; Neutrophils % 72.7 % (38.7-73.9); Platelet Count 206 T/CUMM (130-400); Red Blood Count 3.27 MC/CUMM (3.8-5.5); Red Cell Distribution Width 14.4 % (9.3-17.3); White Blood Count 10.3 T/CUMM (4-12)
[2020-08-09 05:41] LABS: Calcium 6.3 MG/DL (8.5-10.1); Osmolality,Calculated 276.2 MOS/KG (273-304); Potassium 3.8 MMOL/L (3.5-5.1)
[2020-08-09] MEDS: INSULIN LISPRO 100 UNIT/ML SUBCUT SCH ×4 (08:20→21:06)
[2020-08-09] MEDS: GABAPENTIN 100 MG CAPSULE PO SCH ×3 (08:52→20:28)
[2020-08-09] MEDS: SODIUM BICARBONATE 650 MG TABLET PO SCH ×3 (08:52→20:27)
[2020-08-09] MEDS: carvediloL 3.125 MG TABLET PO SCH ×2 (08:52→20:28)
[2020-08-09] MEDS: PANTOPRAZOLE 40 MG TABLET PO SCH (08:52)
[2020-08-09] MEDS: ASPIRIN CHEW 81 MG TABLET PO SCH (08:53)
[2020-08-09] MEDS: LINEZOLID INJ 600 MG in PREMIX 1 EACH IV SCH (08:53)
[2020-08-09] MEDS: ENOXAPARIN 30 MG/0.3 ML SYRINGE SUBCUT SCH (09:53)
[2020-08-09] MEDS: LEVOFLOXACIN 750 MG TABLET PO SCH (15:16)
[2020-08-09] MEDS: ATORVASTATIN 40 MG TABLET PO SCH (20:28)
[2020-08-09] MEDS: LINEZOLID 600 MG TABLET PO SCH (20:28)
[2020-08-10] MEDS: ALBUTEROL 0.63 MG/3 ML NEB RESP TX SCH ×4 (01:50→18:50)
[2020-08-10 06:17] LABS: Basophils % 0.2 % (0.0-0.8); Eosinophils # 0.1 10*3/uL (0.0-0.87); Eosinophils % 0.6 % (0.00-10.9); Hematocrit 27.4 VOL% (42.0-52.0); Immature Granulocytes % 3.8 %; Immature Granulocytes Absolute 0.48 #; Lymphocytes # 1.6 10*3/uL (1.4-4.0); Lymphocytes % 12.7 % (21.2-54.2); Mean Corpuscular HGB Conc 32.8 GM/DL (32-36); Mean Corpuscular Volume 87.3 FL (87-102); Monocytes % 5.8 % (1.7-12.7); NRBC # 0.03 10*3/uL; Neutrophils % 76.9 % (38.7-73.9); Platelet Count 243 T/CUMM (130-400); Red Blood Count 3.14 MC/CUMM (3.8-5.5); Red Cell Distribution Width 14.2 % (9.3-17.3); White Blood Count 12.6 T/CUMM (4-12)
[2020-08-10 06:47] LABS: Calcium 6.1 MG/DL (8.5-10.1); Osmolality,Calculated 279.9 MOS/KG (273-304); Potassium 3.7 MMOL/L (3.5-5.1)
[2020-08-10] MEDS: INSULIN LISPRO 100 UNIT/ML SUBCUT SCH ×4 (08:12→21:25)
[2020-08-10] MEDS: PANTOPRAZOLE 40 MG TABLET PO SCH (09:08)
[2020-08-10] MEDS: carvediloL 3.125 MG TABLET PO SCH ×2 (09:08→20:47)
[2020-08-10] MEDS: SODIUM BICARBONATE 650 MG TABLET PO SCH ×3 (09:08→20:47)
[2020-08-10] MEDS: LINEZOLID 600 MG TABLET PO SCH ×2 (09:08→20:47)
[2020-08-10] MEDS: GABAPENTIN 100 MG CAPSULE PO SCH ×3 (09:08→20:47)
[2020-08-10] MEDS: ASPIRIN CHEW 81 MG TABLET PO SCH (09:08)
[2020-08-10] MEDS: ENOXAPARIN 30 MG/0.3 ML SYRINGE SUBCUT SCH (09:53)
[2020-08-10] MEDS: ATORVASTATIN 40 MG TABLET PO SCH (20:47)
[2020-08-11] MEDS: ALBUTEROL 0.63 MG/3 ML NEB RESP TX SCH ×4 (02:19→19:31)
[2020-08-11 06:35] LABS: Basophils % 0.2 % (0.0-0.8); Eosinophils # 0.1 10*3/uL (0.0-0.87); Hematocrit 25.1 VOL% (42.0-52.0); Hemoglobin 8.5 GM/DL (14.0-18.0); Immature Granulocytes % 3.8 %; Immature Granulocytes Absolute 0.49 #; Lymphocytes # 1.8 10*3/uL (1.4-4.0); Lymphocytes % 14.4 % (21.2-54.2); Mean Corpuscular HGB Conc 33.9 GM/DL (32-36); Mean Corpuscular Volume 83.9 FL (87-102); Mean Platelet Volume 11.7 FL (9.6-12.0); Monocytes % 5.7 % (1.7-12.7); NRBC # 0.04 10*3/uL; Neutrophils % 74.9 % (38.7-73.9); Platelet Count 226 T/CUMM (130-400); Red Blood Count 2.99 MC/CUMM (3.8-5.5); Red Cell Distribution Width 13.9 % (9.3-17.3); White Blood Count 12.7 T/CUMM (4-12)
[2020-08-11 06:52] LABS: Osmolality,Calculated 279.2 MOS/KG (273-304); Potassium 3.4 MMOL/L (3.5-5.1)
[2020-08-11 06:58] LABS: Calcium 5.7 MG/DL (8.5-10.1)
[2020-08-11] MEDS: INSULIN LISPRO 100 UNIT/ML SUBCUT SCH ×4 (07:48→21:02)
[2020-08-11] MEDS: SODIUM BICARBONATE 650 MG TABLET PO SCH ×3 (08:49→21:01)
[2020-08-11] MEDS: LINEZOLID 600 MG TABLET PO SCH ×2 (08:50→21:01)
[2020-08-11] MEDS: ASPIRIN CHEW 81 MG TABLET PO SCH (08:50)
[2020-08-11] MEDS: LEVOFLOXACIN 750 MG TABLET PO SCH (08:50)
[2020-08-11] MEDS: carvediloL 3.125 MG TABLET PO SCH ×2 (08:50→21:02)
[2020-08-11] MEDS: PANTOPRAZOLE 40 MG TABLET PO SCH (08:50)
[2020-08-11] MEDS: GABAPENTIN 100 MG CAPSULE PO SCH ×3 (08:50→21:01)
[2020-08-11] MEDS: ENOXAPARIN 30 MG/0.3 ML SYRINGE SUBCUT SCH (09:43)
[2020-08-11] MEDS: CALCIUM (CARBONATE) 600 MG TABLET PO SCH ×2 (11:37→16:58)
[2020-08-11] MEDS: ATORVASTATIN 40 MG TABLET PO SCH (21:02)
[2020-08-12] MEDS: ALBUTEROL 0.63 MG/3 ML NEB RESP TX SCH ×4 (00:42→19:16)
[2020-08-12 05:28] LABS: Basophils % 0.2 % (0.0-0.8); NRBC # 0.06 10*3/uL
[2020-08-12 05:33] LABS: Eosinophils # 0.1 10*3/uL (0.0-0.87); Hematocrit 26.6 VOL% (42.0-52.0); Hemoglobin 8.8 GM/DL (14.0-18.0); Immature Granulocytes Absolute 0.41 #; Lymphocytes # 1.5 10*3/uL (1.4-4.0); Mean Corpuscular HGB Conc 33.1 GM/DL (32-36); Mean Corpuscular Volume 86.1 FL (87-102); Mean Platelet Volume 10.9 FL (9.6-12.0); Monocytes % 5.9 % (1.7-12.7); Neutrophils % 78.9 % (38.7-73.9); Platelet Count 269 T/CUMM (130-400); Red Blood Count 3.09 MC/CUMM (3.8-5.5); White Blood Count 13.7 T/CUMM (4-12)
[2020-08-12 05:45] LABS: Calcium 5.9 MG/DL (8.5-10.1); Osmolality,Calculated 280.9 MOS/KG (273-304); Potassium 3.9 MMOL/L (3.5-5.1)
[2020-08-12 06:59] LABS: Albumin 1.7 G/DL (3.4-5.0); Bilirubin,Total 0.4 MG/DL (0.2-1.0); Osmolality,Calculated 283.8 MOS/KG (273-304)
[2020-08-12 07:05] LABS: Calcium 5.4 MG/DL (8.5-10.1)
[2020-08-12] MEDS: CALCIUM (CARBONATE) 600 MG TABLET PO SCH ×3 (09:22→18:02)
[2020-08-12] MEDS: INSULIN LISPRO 100 UNIT/ML SUBCUT SCH ×4 (09:22→22:38)
[2020-08-12] MEDS: SODIUM BICARBONATE 650 MG TABLET PO SCH ×3 (09:23→21:26)
[2020-08-12] MEDS: PANTOPRAZOLE 40 MG TABLET PO SCH (09:23)
[2020-08-12] MEDS: ASPIRIN CHEW 81 MG TABLET PO SCH (09:23)
[2020-08-12] MEDS: LINEZOLID 600 MG TABLET PO SCH (09:23)
[2020-08-12] MEDS: GABAPENTIN 100 MG CAPSULE PO SCH ×3 (09:23→21:27)
[2020-08-12] MEDS: carvediloL 3.125 MG TABLET PO SCH ×2 (09:23→21:27)
[2020-08-12] MEDS: ENOXAPARIN 30 MG/0.3 ML SYRINGE SUBCUT SCH (10:47)
[2020-08-12] MEDS: calcitrioL 0.25 MCG CAPSULE PO SCH (10:47)
[2020-08-12] MEDS: ISOSORBIDE MONONITRATE 30 MG TABLET PO SCH (11:24)
[2020-08-12] MEDS: ATORVASTATIN 40 MG TABLET PO SCH (21:27)
[2020-08-13] MEDS: ALBUTEROL 0.63 MG/3 ML NEB RESP TX SCH ×3 (00:16→13:33)
[2020-08-13 04:14] LABS: Basophils % 0.2 % (0.0-0.8); Eosinophils # 0.2 10*3/uL (0.0-0.87); Eosinophils % 1.9 % (0.00-10.9); Hematocrit 28.2 VOL% (42.0-52.0); Hemoglobin 9.3 GM/DL (14.0-18.0); Immature Granulocytes % 3.2 %; Immature Granulocytes Absolute 0.38 #; Lymphocytes % 8.5 % (21.2-54.2); Mean Corpuscular Volume 86.2 FL (87-102); Mean Platelet Volume 10.4 FL (9.6-12.0); Monocytes % 6.9 % (1.7-12.7); NRBC # 0.04 10*3/uL; Neutrophils % 79.3 % (38.7-73.9); Platelet Count 268 T/CUMM (130-400); Red Blood Count 3.27 MC/CUMM (3.8-5.5); White Blood Count 11.8 T/CUMM (4-12)
[2020-08-13 04:31] LABS: Osmolality,Calculated 285.7 MOS/KG (273-304); Potassium 3.8 MMOL/L (3.5-5.1)
[2020-08-13 04:36] LABS: Calcium 5.8 MG/DL (8.5-10.1)
[2020-08-13] MEDS: GABAPENTIN 100 MG CAPSULE PO SCH ×2 (09:07→16:02)
[2020-08-13] MEDS: carvediloL 3.125 MG TABLET PO SCH (09:07)
[2020-08-13] MEDS: SODIUM BICARBONATE 650 MG TABLET PO SCH ×2 (09:07→16:02)
[2020-08-13] MEDS: INSULIN LISPRO 100 UNIT/ML SUBCUT SCH ×3 (09:07→16:22)
[2020-08-13] MEDS: CALCIUM (CARBONATE) 600 MG TABLET PO SCH ×3 (09:08→16:56)
[2020-08-13] MEDS: LEVOFLOXACIN 750 MG TABLET PO SCH (09:08)
[2020-08-13] MEDS: PANTOPRAZOLE 40 MG TABLET PO SCH (09:08)
[2020-08-13] MEDS: calcitrioL 0.25 MCG CAPSULE PO SCH (09:08)
[2020-08-13] MEDS: ASPIRIN CHEW 81 MG TABLET PO SCH (09:08)
[2020-08-13] MEDS: ISOSORBIDE MONONITRATE 30 MG TABLET PO SCH (09:08)
[2020-08-13] MEDS: ENOXAPARIN 30 MG/0.3 ML SYRINGE SUBCUT SCH (11:45)
[2020-08-13 16:17] VITALS: BP 119/69
== END 2020-08-13 19:20 | DRG 720 ==
LOC: EDUNIT# → EDBD → N.ED 15:22 → SUATTDRO 17:33 → N.EDINP 17:33 → N.TELEN 08-06 13:52
PROVIDERS: ADMIT Internal Medicine; ATTEND Internal Medicine

== ENCOUNTER 2020-10-02 01:33 | Inpatient (IN) ==
[2020-10-02] MEDS ORDERED: NICOTINE 21 MG/24 HR PATCH TRANSDERM PRN (05:17)
[2020-10-02] MEDS ORDERED: hydrALAZINE 20 MG/1 ML VIAL IV PRN (05:17)
[2020-10-02] MEDS ORDERED: ACETAMINOPHEN 325 MG TABLET PO PRN (05:17)
[2020-10-02] MEDS ORDERED: ONDANSETRON 4 MG/2 ML VIAL IV PRN (05:17)
[2020-10-02] MEDS ORDERED: DEXTROSE 50% 25 GM/50 ML VIAL IV PRN (05:17)
[2020-10-02] MEDS ORDERED: diphenhydrAMINE CAP 25 MG CAPSULE PO PRN (05:17)
[2020-10-02] MEDS ORDERED: MORPHINE 4 MG/1 ML VIAL IV PRN (05:17)
[2020-10-02] MEDS ORDERED: guaiFENesin/DM ER 600-30 MG TABLET PO PRN (05:17)
[2020-10-02] MEDS ORDERED: GLUCAGON 1 MG VIAL IM PRN (05:17)
[2020-10-02 06:35] LABS: Basophils % 0.5 % (0.0-0.8); Eosinophils # 0.1 10*3/uL (0.0-0.87); Eosinophils % 1.2 % (0.00-10.9); Hematocrit 26.7 VOL% (42.0-52.0); Hemoglobin 8.8 GM/DL (14.0-18.0); Immature Granulocytes % 0.5 %; Immature Granulocytes Absolute 0.04 #; Lymphocytes # 1.9 10*3/uL (1.4-4.0); Lymphocytes % 22.6 % (21.2-54.2); Mean Corpuscular Volume 87.5 FL (87-102); Mean Platelet Volume 11.2 FL (9.6-12.0); Monocytes % 5.1 % (1.7-12.7); Neutrophils % 70.1 % (38.7-73.9); Platelet Count 270 T/CUMM (130-400); Red Blood Count 3.05 MC/CUMM (3.8-5.5); Red Cell Distribution Width 14.1 % (9.3-17.3); White Blood Count 8.2 T/CUMM (4-12)
[2020-10-02 07:08] LABS: Risk Ratio 3.04
[2020-10-02] MEDS: ALBUTEROL/IPRATROPIUM 3 ML NEB RESP TX SCH ×3 (07:09→19:53)
[2020-10-02 07:14] LABS: Albumin 2.8 G/DL (3.4-5.0); Bilirubin,Total 1.6 MG/DL (0.2-1.0); Osmolality,Calculated 256.2 MOS/KG (273-304); Potassium 3.6 MMOL/L (3.5-5.1); Total Protein 6.8 G/DL (6.4-8.2)
[2020-10-02] MEDS ORDERED: HEPARIN DRIP 25,000 UNITS/500 ML PREMIX IV SCH (08:30)
[2020-10-02] MEDS ORDERED: carvediloL 3.125 MG TABLET PO SCH (09:00)
[2020-10-02] MEDS ORDERED: CLOPIDOGREL 300 MG TABLET PO ONE (09:00)
[2020-10-02] MEDS ORDERED: FUROSEMIDE 40 MG/4 ML VIAL IV ONE (09:04)
[2020-10-02] MEDS: carvediloL 6.25 MG TABLET PO SCH ×2 (09:21→21:32)
[2020-10-02] MEDS: ASPIRIN EC 81 MG TABLET PO SCH (09:21)
[2020-10-02] MEDS: ISOSORBIDE MONONITRATE 30 MG TABLET PO SCH (09:21)
[2020-10-02] MEDS: ACETYLCYSTEINE 600 MG CAPSULE PO SCH ×2 (12:22→21:29)
[2020-10-02] MEDS ORDERED: diphenhydrAMINE CAP 25 MG CAPSULE PO ONE (14:39)
[2020-10-02] MEDS ORDERED: DIAZEPAM 5 MG TABLET PO ONE (14:39)
[2020-10-02] MEDS ORDERED: POTASSIUM CHLORIDE RIDER 10 MEQ/100 ML PREMIX IV PRN (14:39)
[2020-10-02] MEDS ORDERED: MAGNESIUM SULF RIDER 2 GM/50 ML PREMIX IV PRN (14:39)
[2020-10-02] MEDS ORDERED: HEPARIN 5,000 UNIT/1 ML VIAL IV ONE (14:44)
[2020-10-02] MEDS ORDERED: HEPARIN/NACL 0.9% 2 UNITS/ML 3,000 UNIT/1,500 ML BAG IV ONE (15:40)
[2020-10-02] MEDS ORDERED: MIDAZOLAM 2 MG/2 ML VIAL ONE (15:52)
[2020-10-02] MEDS ORDERED: fentaNYL 100 MCG/2 ML VIAL ONE (15:52)
[2020-10-02] MEDS ORDERED: LIDOCAINE 1% 20 ML VIAL ONE (15:56)
[2020-10-02] MEDS ORDERED: NITROGLYCERIN DRIP 50 MG/250 ML BOTTLE IV ONE (16:00)
[2020-10-02] MEDS ORDERED: HEPARIN 5,000 UNIT/1 ML VIAL ONE (16:21)
[2020-10-02] MEDS ORDERED: EPTIFIBATIDE 20,000 MCG/10 ML VIAL ONE ×2 (16:26→16:39)
[2020-10-02] MEDS ORDERED: EPTIFIBATIDE 75 MG/100 ML BOTTLE IV ONE (16:47)
[2020-10-02] MEDS: EPTIFIBATIDE 75 MG/100 ML BOTTLE IV SCH (17:02)
[2020-10-02] MEDS: ATORVASTATIN 80 MG TABLET PO SCH (21:29)
[2020-10-03] MEDS: ALBUTEROL/IPRATROPIUM 3 ML NEB RESP TX SCH ×4 (00:19→21:10)
[2020-10-03 02:38] LABS: Basophils % 0.6 % (0.0-0.8); Eosinophils # 0.1 10*3/uL (0.0-0.87); Eosinophils % 1.6 % (0.00-10.9); Hematocrit 23.5 VOL% (42.0-52.0); Hemoglobin 7.7 GM/DL (14.0-18.0); Immature Granulocytes % 0.4 %; Immature Granulocytes Absolute 0.03 #; Lymphocytes # 1.8 10*3/uL (1.4-4.0); Lymphocytes % 25.7 % (21.2-54.2); Mean Corpuscular HGB Conc 32.8 GM/DL (32-36); Mean Platelet Volume 10.5 FL (9.6-12.0); Neutrophils % 64.7 % (38.7-73.9); Platelet Count 260 T/CUMM (130-400); Red Blood Count 2.67 MC/CUMM (3.8-5.5); Red Cell Distribution Width 14.6 % (9.3-17.3); White Blood Count 6.9 T/CUMM (4-12)
[2020-10-03 02:57] LABS: Calcium 7.3 MG/DL (8.5-10.1); Osmolality,Calculated 262.7 MOS/KG (273-304); Potassium 4.1 MMOL/L (3.5-5.1)
[2020-10-03] MEDS: EPTIFIBATIDE 75 MG/100 ML BOTTLE IV SCH (07:04)
[2020-10-03] MEDS: carvediloL 6.25 MG TABLET PO SCH ×2 (08:37→20:41)
[2020-10-03] MEDS: ASPIRIN EC 81 MG TABLET PO SCH (08:37)
[2020-10-03] MEDS: ISOSORBIDE MONONITRATE 30 MG TABLET PO SCH (08:37)
[2020-10-03] MEDS: CLOPIDOGREL 75 MG TABLET PO SCH (08:37)
[2020-10-03] MEDS: ACETYLCYSTEINE 600 MG CAPSULE PO SCH ×2 (08:37→20:41)
[2020-10-03] MEDS ORDERED: FUROSEMIDE 40 MG/4 ML VIAL IV ONE (12:14)
[2020-10-03] MEDS ORDERED: SODIUM CHLORIDE 0.9% 1,000 ML IV SCH (12:30)
[2020-10-03] MEDS: ATORVASTATIN 80 MG TABLET PO SCH (20:41)
[2020-10-04] MEDS: ALBUTEROL/IPRATROPIUM 3 ML NEB RESP TX SCH ×2 (01:10→08:20)
[2020-10-04 06:06] LABS: Basophils # 0.1 10*3/uL (0.0-0.2); Basophils % 0.9 % (0.0-0.8); Eosinophils # 0.2 10*3/uL (0.0-0.87); Hemoglobin 8.4 GM/DL (14.0-18.0); Immature Granulocytes % 0.5 %; Immature Granulocytes Absolute 0.04 #; Lymphocytes # 2.3 10*3/uL (1.4-4.0); Lymphocytes % 29.9 % (21.2-54.2); Mean Corpuscular HGB Conc 33.6 GM/DL (32-36); Mean Corpuscular Volume 87.7 FL (87-102); Mean Platelet Volume 10.4 FL (9.6-12.0); Monocytes % 6.4 % (1.7-12.7); NRBC # 0.03 10*3/uL; Neutrophils % 60.3 % (38.7-73.9); Platelet Count 283 T/CUMM (130-400); Red Blood Count 2.85 MC/CUMM (3.8-5.5); Red Cell Distribution Width 14.8 % (9.3-17.3); White Blood Count 7.7 T/CUMM (4-12)
[2020-10-04 06:18] LABS: Calcium 7.8 MG/DL (8.5-10.1); Osmolality,Calculated 260.9 MOS/KG (273-304); Potassium 4.4 MMOL/L (3.5-5.1)
[2020-10-04] MEDS ORDERED: CALCIUM (CARBONATE) 500 MG TABLET PO SCH (09:00)
[2020-10-04] MEDS ORDERED: amLODIPine 10 MG TABLET PO SCH (09:00)
[2020-10-04] MEDS ORDERED: SODIUM BICARBONATE 650 MG TABLET PO SCH (09:00)
[2020-10-04] MEDS: carvediloL 6.25 MG TABLET PO SCH (09:26)
[2020-10-04] MEDS: CLOPIDOGREL 75 MG TABLET PO SCH (09:27)
[2020-10-04] MEDS: ASPIRIN EC 81 MG TABLET PO SCH (09:27)
[2020-10-04] MEDS: ISOSORBIDE MONONITRATE 30 MG TABLET PO SCH (09:27)
[2020-10-04 11:32] VITALS: BP 123/76
== END 2020-10-04 13:08 | disposition home health service (06) | DRG 175 ==
LOC: SUATTDRO 04:09 → N.TELEN 04:09
PROVIDERS: ADMIT Internal Medicine; ATTEND Internal Medicine Geriatric Medicine

== ENCOUNTER 2020-10-06 20:16 | Inpatient (IN) ==
[2020-10-06] MEDS ORDERED: ONDANSETRON 4 MG/2 ML VIAL IV PRN (23:57)
[2020-10-06] MEDS ORDERED: ACETAMINOPHEN 325 MG TABLET PO PRN (23:57)
[2020-10-06] MEDS ORDERED: GLUCAGON 1 MG VIAL IM PRN (23:57)
[2020-10-06] MEDS ORDERED: DOCUSATE SODIUM 100 MG CAPSULE PO PRN (23:57)
[2020-10-06] MEDS ORDERED: DEXTROSE 50% 25 GM/50 ML VIAL IV PRN (23:57)
[2020-10-07] MEDS ORDERED: NITROGLYCERIN SL 0.4 MG TABLET SL PRN (00:03)
[2020-10-07] MEDS ORDERED: ALBUTEROL/IPRATROPIUM 3 ML NEB RESP TX PRN (00:09)
[2020-10-07] MEDS: AZITHROMYCIN INJ 500 MG in SODIUM CHLORIDE 0.9% 250 ML IV SCH (00:18)
[2020-10-07 05:45] LABS: Calcium 8.2 MG/DL (8.5-10.1); Osmolality,Calculated 258.5 MOS/KG (273-304); Potassium 4.3 MMOL/L (3.5-5.1)
[2020-10-07] MEDS ORDERED: CALCIUM CARBONATE CHEW 500 MG TABLET PO SCH (08:00)
[2020-10-07 08:31] LABS: Basophils # 0.1 10*3/uL (0.0-0.2); Basophils % 0.6 % (0.0-0.8); Eosinophils # 0.1 10*3/uL (0.0-0.87); Eosinophils % 1.6 % (0.00-10.9); Hematocrit 26.9 VOL% (42.0-52.0); Hemoglobin 9.1 GM/DL (14.0-18.0); Immature Granulocytes % 0.4 %; Immature Granulocytes Absolute 0.03 #; Lymphocytes # 1.9 10*3/uL (1.4-4.0); Lymphocytes % 23.4 % (21.2-54.2); Mean Corpuscular HGB Conc 33.8 GM/DL (32-36); Mean Corpuscular Volume 88.2 FL (87-102); Mean Platelet Volume 10.1 FL (9.6-12.0); Monocytes % 5.2 % (1.7-12.7); Neutrophils % 68.8 % (38.7-73.9); Platelet Count 342 T/CUMM (130-400); Red Blood Count 3.05 MC/CUMM (3.8-5.5); Red Cell Distribution Width 15.8 % (9.3-17.3); White Blood Count 8.1 T/CUMM (4-12)
[2020-10-07] MEDS: INSULIN LISPRO 100 UNIT/ML SUBCUT SCH ×4 (08:39→21:49)
[2020-10-07] MEDS: ASPIRIN CHEW 81 MG TABLET PO SCH (08:49)
[2020-10-07] MEDS: amLODIPine 10 MG TABLET PO SCH (08:49)
[2020-10-07] MEDS: carvediloL 6.25 MG TABLET PO SCH ×2 (08:49→16:14)
[2020-10-07] MEDS: ISOSORBIDE MONONITRATE 30 MG TABLET PO SCH (08:49)
[2020-10-07] MEDS: CLOPIDOGREL 75 MG TABLET PO SCH (08:49)
[2020-10-07] MEDS: GABAPENTIN 100 MG CAPSULE PO SCH ×3 (08:49→20:59)
[2020-10-07] MEDS ORDERED: PANTOPRAZOLE 40 MG TABLET PO SCH (09:00)
[2020-10-07] MEDS ORDERED: GABAPENTIN 100 MG CAPSULE PO SCH (09:00)
[2020-10-07] MEDS ORDERED: SODIUM BICARBONATE 650 MG TABLET PO SCH (09:00)
[2020-10-07] MEDS ORDERED: ISOSORBIDE MONONITRATE 30 MG TABLET PO SCH (09:00)
[2020-10-07] MEDS ORDERED: carvediloL 6.25 MG TABLET PO SCH (09:00)
[2020-10-07] MEDS ORDERED: amLODIPine 10 MG TABLET PO SCH (09:00)
[2020-10-07] MEDS ORDERED: CLOPIDOGREL 75 MG TABLET PO SCH (09:00)
[2020-10-07] MEDS ORDERED: GLIMEPIRIDE 2 MG TABLET PO SCH ×2 (09:00)
[2020-10-07] MEDS ORDERED: ASPIRIN CHEW 81 MG TABLET PO SCH (09:00)
[2020-10-07] MEDS: CALCIUM CARBONATE CHEW 500 MG TABLET PO SCH ×2 (11:39→16:11)
[2020-10-07] MEDS: SODIUM BICARBONATE 650 MG TABLET PO SCH ×2 (16:10→20:59)
[2020-10-07] MEDS: FUROSEMIDE 40 MG/4 ML VIAL IV SCH ×2 (16:11→21:00)
[2020-10-07] MEDS: cefTRIAXone 1,000 MG in SODIUM CHLORIDE 0.9% 100 ML IV SCH (16:11)
[2020-10-07] MEDS: ALBUTEROL/IPRATROPIUM 3 ML NEB RESP TX SCH (19:58)
[2020-10-07] MEDS: ATORVASTATIN 80 MG TABLET PO SCH (21:00)
[2020-10-08] MEDS: ALBUTEROL/IPRATROPIUM 3 ML NEB RESP TX SCH ×4 (00:16→20:40)
[2020-10-08 05:35] LABS: Basophils % 0.6 % (0.0-0.8); Eosinophils # 0.1 10*3/uL (0.0-0.87); Eosinophils % 1.9 % (0.00-10.9); Hematocrit 25.7 VOL% (42.0-52.0); Hemoglobin 8.4 GM/DL (14.0-18.0); Immature Granulocytes % 0.6 %; Immature Granulocytes Absolute 0.04 #; Lymphocytes # 1.6 10*3/uL (1.4-4.0); Lymphocytes % 23.7 % (21.2-54.2); Mean Corpuscular HGB Conc 32.7 GM/DL (32-36); Mean Corpuscular Volume 89.2 FL (87-102); Mean Platelet Volume 9.8 FL (9.6-12.0); Monocytes % 8.5 % (1.7-12.7); Neutrophils % 64.7 % (38.7-73.9); Platelet Count 300 T/CUMM (130-400); Red Blood Count 2.88 MC/CUMM (3.8-5.5); Red Cell Distribution Width 15.6 % (9.3-17.3); White Blood Count 6.8 T/CUMM (4-12)
[2020-10-08] MEDS: PANTOPRAZOLE 40 MG TABLET PO SCH (05:45)
[2020-10-08 05:47] LABS: Osmolality,Calculated 260.2 MOS/KG (273-304); Potassium 4.1 MMOL/L (3.5-5.1)
[2020-10-08 05:53] LABS: INR 1.1; PT Patient Result 12.1 SECS (10.5-12.0)
[2020-10-08] MEDS ORDERED: ENOXAPARIN 30 MG/0.3 ML SYRINGE SUBCUT SCH (09:00)
[2020-10-08] MEDS: INSULIN LISPRO 100 UNIT/ML SUBCUT SCH ×4 (09:50→20:30)
[2020-10-08] MEDS: FUROSEMIDE 40 MG/4 ML VIAL IV SCH ×3 (09:50→21:43)
[2020-10-08] MEDS: amLODIPine 10 MG TABLET PO SCH (09:51)
[2020-10-08] MEDS: carvediloL 6.25 MG TABLET PO SCH ×2 (09:51→17:47)
[2020-10-08] MEDS: CALCIUM CARBONATE CHEW 500 MG TABLET PO SCH ×3 (09:52→17:47)
[2020-10-08] MEDS: ISOSORBIDE MONONITRATE 30 MG TABLET PO SCH (09:52)
[2020-10-08] MEDS: GABAPENTIN 100 MG CAPSULE PO SCH ×3 (09:52→21:43)
[2020-10-08] MEDS: ASPIRIN CHEW 81 MG TABLET PO SCH (09:52)
[2020-10-08] MEDS: AZITHROMYCIN INJ 500 MG in SODIUM CHLORIDE 0.9% 250 ML IV SCH (09:53)
[2020-10-08] MEDS: SODIUM BICARBONATE 650 MG TABLET PO SCH ×3 (09:53→21:43)
[2020-10-08] MEDS: cefTRIAXone 1,000 MG in SODIUM CHLORIDE 0.9% 100 ML IV SCH (15:20)
[2020-10-08] MEDS ORDERED: ATORVASTATIN 80 MG TABLET PO SCH (21:00)
[2020-10-08] MEDS: ATORVASTATIN 80 MG TABLET PO SCH (21:43)
[2020-10-09] MEDS: ALBUTEROL/IPRATROPIUM 3 ML NEB RESP TX SCH ×4 (01:33→20:30)
[2020-10-09 05:15] LABS: Basophils % 0.5 % (0.0-0.8); Eosinophils # 0.1 10*3/uL (0.0-0.87); Eosinophils % 1.5 % (0.00-10.9); Hematocrit 24.9 VOL% (42.0-52.0); Hemoglobin 8.2 GM/DL (14.0-18.0); Immature Granulocytes % 0.5 %; Immature Granulocytes Absolute 0.03 #; Lymphocytes # 1.2 10*3/uL (1.4-4.0); Lymphocytes % 17.7 % (21.2-54.2); Mean Corpuscular HGB Conc 32.9 GM/DL (32-36); Mean Corpuscular Volume 89.6 FL (87-102); Mean Platelet Volume 10.1 FL (9.6-12.0); Monocytes % 6.6 % (1.7-12.7); Neutrophils % 73.2 % (38.7-73.9); Platelet Count 295 T/CUMM (130-400); Red Blood Count 2.78 MC/CUMM (3.8-5.5); Red Cell Distribution Width 15.9 % (9.3-17.3); White Blood Count 6.6 T/CUMM (4-12)
[2020-10-09] MEDS: PANTOPRAZOLE 40 MG TABLET PO SCH (05:53)
[2020-10-09 05:54] LABS: Calcium 8.3 MG/DL (8.5-10.1); Potassium 4.2 MMOL/L (3.5-5.1)
[2020-10-09 05:55] LABS: Osmolality,Calculated 260.2 MOS/KG (273-304)
[2020-10-09] MEDS: INSULIN LISPRO 100 UNIT/ML SUBCUT SCH ×4 (07:07→22:17)
[2020-10-09] MEDS ORDERED: BUPIVACAINE MPF 0.25% 30 ML VIAL ONE (09:47)
[2020-10-09] MEDS ORDERED: LIDOCAINE 1%/EPI INJ 20 ML VIAL ONE (09:48)
[2020-10-09] MEDS ORDERED: HEPARIN 5,000 UNIT/1 ML VIAL ONE (09:48)
[2020-10-09] MEDS: cefTRIAXone 1,000 MG in SODIUM CHLORIDE 0.9% 100 ML IV SCH (10:15)
[2020-10-09] MEDS ORDERED: KETAMINE 500 MG/10 ML VIAL ONE (10:37)
[2020-10-09] MEDS ORDERED: SODIUM CHLORIDE 0.9% 250 ML IV SCH (11:00)
[2020-10-09 13:06] LABS: Hepatitis B Core IgM Quant 0.09 Index; Hepatitis B Surface Ag Quant < 0.10 Index; Hepatitis B Surface Ag Result Non-Reactive (NonReactive); Hepatitis C Virus Ab Quant 0.07 Index; Hepatitis C Virus Ab Result Non-Reactive (NonReactive)
[2020-10-09] MEDS: ASPIRIN CHEW 81 MG TABLET PO SCH (16:22)
[2020-10-09] MEDS: GABAPENTIN 100 MG CAPSULE PO SCH ×3 (16:22→22:18)
[2020-10-09] MEDS: CLOPIDOGREL 75 MG TABLET PO SCH (16:22)
[2020-10-09] MEDS: SODIUM BICARBONATE 650 MG TABLET PO SCH ×3 (16:23→22:18)
[2020-10-09] MEDS: ISOSORBIDE MONONITRATE 30 MG TABLET PO SCH (16:23)
[2020-10-09] MEDS: amLODIPine 10 MG TABLET PO SCH (16:23)
[2020-10-09] MEDS: carvediloL 6.25 MG TABLET PO SCH ×2 (16:23→16:26)
[2020-10-09] MEDS: AZITHROMYCIN INJ 500 MG in SODIUM CHLORIDE 0.9% 250 ML IV SCH (16:23)
[2020-10-09] MEDS: CALCIUM CARBONATE CHEW 500 MG TABLET PO SCH ×3 (16:23→16:38)
[2020-10-09] MEDS: FUROSEMIDE 40 MG/4 ML VIAL IV SCH ×3 (16:24→22:17)
[2020-10-09] MEDS: ATORVASTATIN 80 MG TABLET PO SCH (22:18)
[2020-10-10] MEDS: ALBUTEROL/IPRATROPIUM 3 ML NEB RESP TX SCH ×4 (00:51→19:41)
[2020-10-10 05:54] LABS: Basophils % 0.5 % (0.0-0.8); Eosinophils # 0.2 10*3/uL (0.0-0.87); Eosinophils % 2.2 % (0.00-10.9); Hematocrit 25.8 VOL% (42.0-52.0); Hemoglobin 8.2 GM/DL (14.0-18.0); Immature Granulocytes % 0.4 %; Immature Granulocytes Absolute 0.03 #; Lymphocytes # 1.6 10*3/uL (1.4-4.0); Lymphocytes % 20.5 % (21.2-54.2); Mean Corpuscular HGB Conc 31.8 GM/DL (32-36); Mean Corpuscular Volume 91.8 FL (87-102); Mean Platelet Volume 10.2 FL (9.6-12.0); Monocytes % 7.9 % (1.7-12.7); Neutrophils % 68.5 % (38.7-73.9); Platelet Count 270 T/CUMM (130-400); Red Blood Count 2.81 MC/CUMM (3.8-5.5); Red Cell Distribution Width 16.1 % (9.3-17.3); White Blood Count 7.6 T/CUMM (4-12)
[2020-10-10 06:02] LABS: Calcium 7.7 MG/DL (8.5-10.1); Osmolality,Calculated 271.4 MOS/KG (273-304); Potassium 4.3 MMOL/L (3.5-5.1)
[2020-10-10] MEDS: PANTOPRAZOLE 40 MG TABLET PO SCH (06:28)
[2020-10-10] MEDS: INSULIN LISPRO 100 UNIT/ML SUBCUT SCH ×4 (07:34→22:20)
[2020-10-10] MEDS: carvediloL 6.25 MG TABLET PO SCH ×2 (08:39→16:06)
[2020-10-10] MEDS: amLODIPine 10 MG TABLET PO SCH (08:43)
[2020-10-10] MEDS: CALCIUM CARBONATE CHEW 500 MG TABLET PO SCH ×3 (08:43→16:06)
[2020-10-10] MEDS: CLOPIDOGREL 75 MG TABLET PO SCH (08:43)
[2020-10-10] MEDS: GABAPENTIN 100 MG CAPSULE PO SCH ×3 (08:43→22:20)
[2020-10-10] MEDS: ASPIRIN CHEW 81 MG TABLET PO SCH (08:43)
[2020-10-10] MEDS: SODIUM BICARBONATE 650 MG TABLET PO SCH ×3 (08:43→22:20)
[2020-10-10] MEDS: FUROSEMIDE 40 MG/4 ML VIAL IV SCH ×3 (08:43→22:20)
[2020-10-10] MEDS: AZITHROMYCIN INJ 500 MG in SODIUM CHLORIDE 0.9% 250 ML IV SCH (08:44)
[2020-10-10] MEDS: cefTRIAXone 1,000 MG in SODIUM CHLORIDE 0.9% 100 ML IV SCH (08:44)
[2020-10-10] MEDS: ISOSORBIDE MONONITRATE 30 MG TABLET PO SCH (08:44)
[2020-10-10] MEDS ORDERED: HEPARIN 10,000 UNIT/10 ML VIAL IV PRN (13:42)
[2020-10-10] MEDS: ATORVASTATIN 80 MG TABLET PO SCH (22:20)
[2020-10-11 05:41] LABS: Basophils # 0.1 10*3/uL (0.0-0.2); Basophils % 0.9 % (0.0-0.8); Eosinophils # 0.2 10*3/uL (0.0-0.87); Hematocrit 27.8 VOL% (42.0-52.0); Hemoglobin 9.1 GM/DL (14.0-18.0); Immature Granulocytes % 0.4 %; Immature Granulocytes Absolute 0.03 #; Lymphocytes # 1.7 10*3/uL (1.4-4.0); Lymphocytes % 21.4 % (21.2-54.2); Mean Corpuscular HGB Conc 32.7 GM/DL (32-36); Mean Corpuscular Volume 90.3 FL (87-102); Mean Platelet Volume 10.4 FL (9.6-12.0); Monocytes % 8.9 % (1.7-12.7); Neutrophils % 66.4 % (38.7-73.9); Platelet Count 260 T/CUMM (130-400); Red Blood Count 3.08 MC/CUMM (3.8-5.5); Red Cell Distribution Width 16.4 % (9.3-17.3); White Blood Count 7.9 T/CUMM (4-12)
[2020-10-11] MEDS: PANTOPRAZOLE 40 MG TABLET PO SCH (06:08)
[2020-10-11 06:12] LABS: Calcium 7.7 MG/DL (8.5-10.1); Osmolality,Calculated 270.1 MOS/KG (273-304)
[2020-10-11] MEDS: ALBUTEROL/IPRATROPIUM 3 ML NEB RESP TX SCH ×4 (07:21→19:28)
[2020-10-11] MEDS: INSULIN LISPRO 100 UNIT/ML SUBCUT SCH ×4 (08:15→21:57)
[2020-10-11] MEDS ORDERED: EPOETIN ALFA-EPBX 2,000 UNIT/ML VIAL IV PRN (09:55)
[2020-10-11] MEDS: carvediloL 6.25 MG TABLET PO SCH ×2 (14:33→18:17)
[2020-10-11] MEDS: ASPIRIN CHEW 81 MG TABLET PO SCH (14:33)
[2020-10-11] MEDS: CALCIUM CARBONATE CHEW 500 MG TABLET PO SCH ×2 (14:33→17:23)
[2020-10-11] MEDS: ISOSORBIDE MONONITRATE 30 MG TABLET PO SCH (14:34)
[2020-10-11] MEDS: amLODIPine 10 MG TABLET PO SCH (14:34)
[2020-10-11] MEDS: CLOPIDOGREL 75 MG TABLET PO SCH (14:34)
[2020-10-11] MEDS: cefTRIAXone 1,000 MG in SODIUM CHLORIDE 0.9% 100 ML IV SCH (14:35)
[2020-10-11] MEDS: AZITHROMYCIN INJ 500 MG in SODIUM CHLORIDE 0.9% 250 ML IV SCH (14:57)
[2020-10-11] MEDS: GABAPENTIN 100 MG CAPSULE PO SCH (14:58)
[2020-10-11] MEDS: FUROSEMIDE 40 MG/4 ML VIAL IV SCH (14:58)
[2020-10-11] MEDS: SODIUM BICARBONATE 650 MG TABLET PO SCH (14:58)
[2020-10-11] MEDS: GABAPENTIN 300 MG CAPSULE PO SCH (21:50)
[2020-10-11] MEDS: ATORVASTATIN 80 MG TABLET PO SCH (21:50)
[2020-10-12] MEDS: ALBUTEROL/IPRATROPIUM 3 ML NEB RESP TX SCH ×4 (00:02→19:15)
[2020-10-12 06:12] LABS: Basophils # 0.1 10*3/uL (0.0-0.2); Basophils % 0.7 % (0.0-0.8); Eosinophils # 0.2 10*3/uL (0.0-0.87); Eosinophils % 2.9 % (0.00-10.9); Hematocrit 27.2 VOL% (42.0-52.0); Hemoglobin 8.4 GM/DL (14.0-18.0); Immature Granulocytes % 0.1 %; Immature Granulocytes Absolute 0.01 #; Lymphocytes # 1.8 10*3/uL (1.4-4.0); Lymphocytes % 24.4 % (21.2-54.2); Mean Corpuscular HGB Conc 30.9 GM/DL (32-36); Mean Corpuscular Volume 93.8 FL (87-102); Mean Platelet Volume 10.6 FL (9.6-12.0); Monocytes % 8.4 % (1.7-12.7); Neutrophils % 63.5 % (38.7-73.9); Platelet Count 234 T/CUMM (130-400); Red Cell Distribution Width 16.1 % (9.3-17.3); White Blood Count 7.2 T/CUMM (4-12)
[2020-10-12] MEDS: PANTOPRAZOLE 40 MG TABLET PO SCH (06:20)
[2020-10-12 06:25] LABS: Calcium 7.8 MG/DL (8.5-10.1); Osmolality,Calculated 273.7 MOS/KG (273-304); Potassium 3.6 MMOL/L (3.5-5.1)
[2020-10-12] MEDS: INSULIN LISPRO 100 UNIT/ML SUBCUT SCH ×4 (07:49→21:21)
[2020-10-12] MEDS: ASPIRIN CHEW 81 MG TABLET PO SCH (08:40)
[2020-10-12] MEDS: ISOSORBIDE MONONITRATE 30 MG TABLET PO SCH (08:40)
[2020-10-12] MEDS: amLODIPine 10 MG TABLET PO SCH (08:40)
[2020-10-12] MEDS: cefTRIAXone 1,000 MG in SODIUM CHLORIDE 0.9% 100 ML IV SCH (08:40)
[2020-10-12] MEDS: CALCIUM CARBONATE CHEW 500 MG TABLET PO SCH ×3 (08:40→16:29)
[2020-10-12] MEDS: carvediloL 6.25 MG TABLET PO SCH ×2 (08:40→16:18)
[2020-10-12] MEDS: CLOPIDOGREL 75 MG TABLET PO SCH (08:40)
[2020-10-12] MEDS: AZITHROMYCIN INJ 500 MG in SODIUM CHLORIDE 0.9% 250 ML IV SCH (13:23)
[2020-10-12] MEDS: ATORVASTATIN 80 MG TABLET PO SCH (21:16)
[2020-10-12] MEDS: GABAPENTIN 300 MG CAPSULE PO SCH (21:16)
[2020-10-13] MEDS: ALBUTEROL/IPRATROPIUM 3 ML NEB RESP TX SCH ×4 (00:07→19:29)
[2020-10-13 06:05] LABS: Basophils # 0.1 10*3/uL (0.0-0.2); Basophils % 0.8 % (0.0-0.8); Eosinophils # 0.3 10*3/uL (0.0-0.87); Eosinophils % 3.7 % (0.00-10.9); Hematocrit 26.6 VOL% (42.0-52.0); Hemoglobin 8.3 GM/DL (14.0-18.0); Immature Granulocytes % 0.4 %; Immature Granulocytes Absolute 0.03 #; Lymphocytes # 1.8 10*3/uL (1.4-4.0); Lymphocytes % 23.6 % (21.2-54.2); Mean Corpuscular HGB Conc 31.2 GM/DL (32-36); Mean Corpuscular Volume 94.7 FL (87-102); Mean Platelet Volume 10.6 FL (9.6-12.0); Monocytes % 6.8 % (1.7-12.7); Neutrophils % 64.7 % (38.7-73.9); Platelet Count 233 T/CUMM (130-400); Red Blood Count 2.81 MC/CUMM (3.8-5.5); Red Cell Distribution Width 15.9 % (9.3-17.3); White Blood Count 7.5 T/CUMM (4-12)
[2020-10-13] MEDS: PANTOPRAZOLE 40 MG TABLET PO SCH (06:10)
[2020-10-13 06:21] LABS: Calcium 7.5 MG/DL (8.5-10.1); Osmolality,Calculated 275.7 MOS/KG (273-304)
[2020-10-13] MEDS: INSULIN LISPRO 100 UNIT/ML SUBCUT SCH ×4 (08:28→21:00)
[2020-10-13] MEDS: cefTRIAXone 1,000 MG in SODIUM CHLORIDE 0.9% 100 ML IV SCH (09:06)
[2020-10-13] MEDS: ISOSORBIDE MONONITRATE 30 MG TABLET PO SCH (09:07)
[2020-10-13] MEDS: ASPIRIN CHEW 81 MG TABLET PO SCH (09:07)
[2020-10-13] MEDS: amLODIPine 10 MG TABLET PO SCH (09:07)
[2020-10-13] MEDS: carvediloL 6.25 MG TABLET PO SCH ×2 (09:07→16:38)
[2020-10-13] MEDS: CALCIUM CARBONATE CHEW 500 MG TABLET PO SCH ×3 (09:07→16:38)
[2020-10-13] MEDS: CLOPIDOGREL 75 MG TABLET PO SCH (09:08)
[2020-10-13] MEDS: AZITHROMYCIN INJ 500 MG in SODIUM CHLORIDE 0.9% 250 ML IV SCH (13:28)
[2020-10-13] MEDS: ATORVASTATIN 80 MG TABLET PO SCH (20:20)
[2020-10-13] MEDS: GABAPENTIN 300 MG CAPSULE PO SCH (20:20)
[2020-10-14] MEDS: ALBUTEROL/IPRATROPIUM 3 ML NEB RESP TX SCH ×4 (01:29→19:03)
[2020-10-14 05:27] LABS: Basophils # 0.1 10*3/uL (0.0-0.2); Basophils % 0.6 % (0.0-0.8); Eosinophils # 0.3 10*3/uL (0.0-0.87); Eosinophils % 3.8 % (0.00-10.9); Hematocrit 25.1 VOL% (42.0-52.0); Immature Granulocytes % 0.4 %; Immature Granulocytes Absolute 0.03 #; Lymphocytes # 1.8 10*3/uL (1.4-4.0); Lymphocytes % 22.1 % (21.2-54.2); Mean Corpuscular HGB Conc 31.9 GM/DL (32-36); Mean Corpuscular Volume 94.4 FL (87-102); Mean Platelet Volume 10.6 FL (9.6-12.0); Monocytes % 6.3 % (1.7-12.7); Neutrophils % 66.8 % (38.7-73.9); Platelet Count 210 T/CUMM (130-400); Red Blood Count 2.66 MC/CUMM (3.8-5.5); Red Cell Distribution Width 15.7 % (9.3-17.3); White Blood Count 8.1 T/CUMM (4-12)
[2020-10-14] MEDS: PANTOPRAZOLE 40 MG TABLET PO SCH (05:38)
[2020-10-14 05:53] LABS: Calcium 7.4 MG/DL (8.5-10.1); Osmolality,Calculated 276.7 MOS/KG (273-304); Potassium 4.2 MMOL/L (3.5-5.1)
[2020-10-14] MEDS: cefTRIAXone 1,000 MG in SODIUM CHLORIDE 0.9% 100 ML IV SCH (09:05)
[2020-10-14] MEDS: CALCIUM CARBONATE CHEW 500 MG TABLET PO SCH ×3 (09:06→17:19)
[2020-10-14] MEDS: CLOPIDOGREL 75 MG TABLET PO SCH (09:06)
[2020-10-14] MEDS: amLODIPine 10 MG TABLET PO SCH (09:06)
[2020-10-14] MEDS: ASPIRIN CHEW 81 MG TABLET PO SCH (09:06)
[2020-10-14] MEDS: carvediloL 6.25 MG TABLET PO SCH ×2 (09:07→17:19)
[2020-10-14] MEDS: ISOSORBIDE MONONITRATE 30 MG TABLET PO SCH (09:07)
[2020-10-14] MEDS: INSULIN LISPRO 100 UNIT/ML SUBCUT SCH ×4 (09:08→21:36)
[2020-10-14] MEDS: AZITHROMYCIN INJ 500 MG in SODIUM CHLORIDE 0.9% 250 ML IV SCH (17:19)
[2020-10-14] MEDS: ATORVASTATIN 80 MG TABLET PO SCH (21:36)
[2020-10-14] MEDS: GABAPENTIN 300 MG CAPSULE PO SCH (21:36)
[2020-10-15] MEDS: ALBUTEROL/IPRATROPIUM 3 ML NEB RESP TX SCH ×3 (00:02→20:21)
[2020-10-15 05:17] LABS: Basophils # 0.1 10*3/uL (0.0-0.2); Basophils % 0.8 % (0.0-0.8); Eosinophils # 0.3 10*3/uL (0.0-0.87); Hematocrit 25.3 VOL% (42.0-52.0); Hemoglobin 7.9 GM/DL (14.0-18.0); Immature Granulocytes % 0.3 %; Immature Granulocytes Absolute 0.02 #; Lymphocytes # 1.9 10*3/uL (1.4-4.0); Lymphocytes % 23.6 % (21.2-54.2); Mean Corpuscular HGB Conc 31.2 GM/DL (32-36); Mean Corpuscular Volume 93.7 FL (87-102); Mean Platelet Volume 10.5 FL (9.6-12.0); Monocytes % 7.2 % (1.7-12.7); Neutrophils % 64.1 % (38.7-73.9); Platelet Count 220 T/CUMM (130-400); Red Cell Distribution Width 15.6 % (9.3-17.3); White Blood Count 7.8 T/CUMM (4-12)
[2020-10-15 05:34] LABS: Calcium 7.2 MG/DL (8.5-10.1); Osmolality,Calculated 271.8 MOS/KG (273-304); Potassium 3.8 MMOL/L (3.5-5.1)
[2020-10-15] MEDS: PANTOPRAZOLE 40 MG TABLET PO SCH (07:05)
[2020-10-15] MEDS: CLOPIDOGREL 75 MG TABLET PO SCH (08:14)
[2020-10-15] MEDS: carvediloL 6.25 MG TABLET PO SCH (08:14)
[2020-10-15] MEDS: CALCIUM CARBONATE CHEW 500 MG TABLET PO SCH ×3 (08:14→19:20)
[2020-10-15] MEDS: ISOSORBIDE MONONITRATE 30 MG TABLET PO SCH (08:14)
[2020-10-15] MEDS: ASPIRIN CHEW 81 MG TABLET PO SCH (08:14)
[2020-10-15] MEDS: INSULIN LISPRO 100 UNIT/ML SUBCUT SCH ×4 (08:18→21:10)
[2020-10-15] MEDS: AZITHROMYCIN INJ 500 MG in SODIUM CHLORIDE 0.9% 250 ML IV SCH (12:11)
[2020-10-15] MEDS: carvediloL 12.5 MG TABLET PO SCH (19:20)
[2020-10-15] MEDS: ATORVASTATIN 80 MG TABLET PO SCH (21:10)
[2020-10-15] MEDS: GABAPENTIN 300 MG CAPSULE PO SCH (21:10)
[2020-10-16] MEDS: ALBUTEROL/IPRATROPIUM 3 ML NEB RESP TX SCH ×4 (02:02→14:40)
[2020-10-16] MEDS: PANTOPRAZOLE 40 MG TABLET PO SCH (06:26)
[2020-10-16] MEDS: INSULIN LISPRO 100 UNIT/ML SUBCUT SCH ×2 (07:29→12:32)
[2020-10-16 08:11] VITALS: BP 106/68
[2020-10-16] MEDS: CALCIUM CARBONATE CHEW 500 MG TABLET PO SCH ×2 (09:28→13:45)
[2020-10-16] MEDS: carvediloL 12.5 MG TABLET PO SCH (09:28)
[2020-10-16] MEDS: ASPIRIN CHEW 81 MG TABLET PO SCH (09:28)
[2020-10-16] MEDS: ISOSORBIDE MONONITRATE 30 MG TABLET PO SCH (09:29)
[2020-10-16] MEDS: CLOPIDOGREL 75 MG TABLET PO SCH (09:29)
[2020-10-16] MEDS: AZITHROMYCIN INJ 500 MG in SODIUM CHLORIDE 0.9% 250 ML IV SCH (13:45)
== END 2020-10-16 14:55 | disposition home or self-care (01) | DRG 194 ==
LOC: N.5E 22:52 → SUATTDRO 22:52
PROVIDERS: ADMIT Internal Medicine; ATTEND Internal Medicine

== ENCOUNTER 2021-01-30 09:11 | Inpatient (IN) ==
[2021-01-30 09:34] LABS: Basophils % 0.4 % (0.0-0.8); Eosinophils # 0.1 10*3/uL (0.0-0.87); Eosinophils % 1.1 % (0.00-10.9); Hematocrit 30.4 VOL% (42.0-52.0); Hemoglobin 9.6 GM/DL (14.0-18.0); Immature Granulocytes % 0.5 %; Immature Granulocytes Absolute 0.05 #; Lymphocytes # 1.7 10*3/uL (1.4-4.0); Mean Corpuscular HGB Conc 31.6 GM/DL (32-36); Mean Corpuscular Volume 89.9 FL (87-102); Mean Platelet Volume 9.9 FL (9.6-12.0); Monocytes % 4.3 % (1.7-12.7); Neutrophils % 77.7 % (38.7-73.9); Platelet Count 282 T/CUMM (130-400); Red Blood Count 3.38 MC/CUMM (3.8-5.5); Red Cell Distribution Width 14.7 % (9.3-17.3); White Blood Count 10.8 T/CUMM (4-12)
[2021-01-30 10:41] LABS: Calcium 8.2 MG/DL (8.5-10.1); Osmolality,Calculated 291.3 MOS/KG (273-304); Potassium 3.8 MMOL/L (3.5-5.1)
[2021-01-30] MEDS ORDERED: BISACODYL 5 MG TABLET PO PRN (10:53)
[2021-01-30] MEDS ORDERED: ONDANSETRON 4 MG/2 ML VIAL IV PRN (10:53)
[2021-01-30] MEDS ORDERED: hydrALAZINE 20 MG/1 ML VIAL IV PRN (10:53)
[2021-01-30] MEDS ORDERED: GLUCAGON 1 MG VIAL IM PRN (10:53)
[2021-01-30] MEDS ORDERED: ACETAMINOPHEN 325 MG TABLET PO PRN (10:53)
[2021-01-30] MEDS ORDERED: DEXTROSE 50% 25 GM/50 ML VIAL IV PRN (10:53)
[2021-01-30] MEDS ORDERED: NITROGLYCERIN SL 0.4 MG TABLET SL PRN (10:56)
[2021-01-30] MEDS ORDERED: HEPARIN 10,000 UNIT/10 ML VIAL IV SCH (12:00)
[2021-01-30 12:44] LABS: Hepatitis B Core IgM Quant 0.08 Index; Hepatitis B Surface Ag Quant < 0.10 Index; Hepatitis B Surface Ag Result Non-Reactive (NonReactive); Hepatitis C Virus Ab Quant 0.11 Index; Hepatitis C Virus Ab Result Non-Reactive (NonReactive)
[2021-01-30] MEDS: INSULIN LISPRO 100 UNIT/ML SUBCUT SCH ×3 (14:43→20:26)
[2021-01-30] MEDS: HEPARIN 5,000 UNIT/1 ML VIAL SUBCUT SCH ×2 (14:43→23:35)
[2021-01-31 06:44] LABS: Basophils % 0.3 % (0.0-0.8); Eosinophils # 0.1 10*3/uL (0.0-0.87); Hematocrit 32.2 VOL% (42.0-52.0); Hemoglobin 10.3 GM/DL (14.0-18.0); Immature Granulocytes % 0.3 %; Immature Granulocytes Absolute 0.04 #; Lymphocytes # 1.6 10*3/uL (1.4-4.0); Lymphocytes % 14.3 % (21.2-54.2); Mean Corpuscular Volume 91.5 FL (87-102); Mean Platelet Volume 10.2 FL (9.6-12.0); Neutrophils % 78.1 % (38.7-73.9); Platelet Count 286 T/CUMM (130-400); Red Blood Count 3.52 MC/CUMM (3.8-5.5); Red Cell Distribution Width 14.6 % (9.3-17.3); White Blood Count 11.4 T/CUMM (4-12)
[2021-01-31 07:10] LABS: Calcium 8.4 MG/DL (8.5-10.1); Osmolality,Calculated 282.4 MOS/KG (273-304); Potassium 3.6 MMOL/L (3.5-5.1); Risk Ratio 1.93; VLDL Cholesterol 18.4 MG/DL
[2021-01-31] MEDS: INSULIN LISPRO 100 UNIT/ML SUBCUT SCH ×4 (09:09→21:08)
[2021-01-31] MEDS: CLOPIDOGREL 75 MG TABLET PO SCH (13:03)
[2021-01-31] MEDS: ISOSORBIDE MONONITRATE 30 MG TABLET PO SCH (13:03)
[2021-01-31] MEDS: PANTOPRAZOLE 40 MG TABLET PO SCH (13:03)
[2021-01-31] MEDS: ASPIRIN CHEW 81 MG TABLET PO SCH (13:03)
[2021-01-31] MEDS: HEPARIN 5,000 UNIT/1 ML VIAL SUBCUT SCH ×2 (13:05→22:13)
[2021-02-01 05:32] LABS: Basophils # 0.1 10*3/uL (0.0-0.2); Basophils % 0.8 % (0.0-0.8); Eosinophils # 0.2 10*3/uL (0.0-0.87); Eosinophils % 3.4 % (0.00-10.9); Hemoglobin 9.3 GM/DL (14.0-18.0); Immature Granulocytes % 0.5 %; Immature Granulocytes Absolute 0.03 #; Lymphocytes # 1.8 10*3/uL (1.4-4.0); Lymphocytes % 27.3 % (21.2-54.2); Mean Corpuscular HGB Conc 32.1 GM/DL (32-36); Mean Corpuscular Volume 89.5 FL (87-102); Mean Platelet Volume 10.3 FL (9.6-12.0); Monocytes % 8.8 % (1.7-12.7); Neutrophils % 59.2 % (38.7-73.9); Platelet Count 276 T/CUMM (130-400); Red Blood Count 3.24 MC/CUMM (3.8-5.5); Red Cell Distribution Width 14.4 % (9.3-17.3); White Blood Count 6.5 T/CUMM (4-12)
[2021-02-01 05:58] LABS: Calcium 8.1 MG/DL (8.5-10.1); Osmolality,Calculated 282.7 MOS/KG (273-304); Potassium 3.4 MMOL/L (3.5-5.1)
[2021-02-01] MEDS: INSULIN LISPRO 100 UNIT/ML SUBCUT SCH ×4 (07:35→22:02)
[2021-02-01] MEDS: HEPARIN 5,000 UNIT/1 ML VIAL SUBCUT SCH ×2 (11:47→22:01)
[2021-02-01] MEDS: CLOPIDOGREL 75 MG TABLET PO SCH (14:26)
[2021-02-01] MEDS: ISOSORBIDE MONONITRATE 30 MG TABLET PO SCH (14:26)
[2021-02-01] MEDS: ASPIRIN CHEW 81 MG TABLET PO SCH (14:26)
[2021-02-01] MEDS: PANTOPRAZOLE 40 MG TABLET PO SCH (14:26)
[2021-02-02] MEDS: INSULIN LISPRO 100 UNIT/ML SUBCUT SCH ×4 (07:58→21:53)
[2021-02-02] MEDS: ASPIRIN CHEW 81 MG TABLET PO SCH (10:00)
[2021-02-02] MEDS: CLOPIDOGREL 75 MG TABLET PO SCH (10:01)
[2021-02-02] MEDS: PANTOPRAZOLE 40 MG TABLET PO SCH (10:01)
[2021-02-02] MEDS: ISOSORBIDE MONONITRATE 30 MG TABLET PO SCH (10:01)
[2021-02-02] MEDS: HEPARIN 5,000 UNIT/1 ML VIAL SUBCUT SCH ×2 (12:29→22:31)
[2021-02-03 05:00] LABS: Basophils # 0.1 10*3/uL (0.0-0.2); Basophils % 0.6 % (0.0-0.8); Eosinophils # 0.3 10*3/uL (0.0-0.87); Eosinophils % 3.4 % (0.00-10.9); Hematocrit 30.7 VOL% (42.0-52.0); Hemoglobin 9.8 GM/DL (14.0-18.0); Immature Granulocytes % 0.6 %; Immature Granulocytes Absolute 0.05 #; Lymphocytes # 1.8 10*3/uL (1.4-4.0); Lymphocytes % 21.6 % (21.2-54.2); Mean Corpuscular HGB Conc 31.9 GM/DL (32-36); Mean Corpuscular Volume 89.2 FL (87-102); Mean Platelet Volume 9.8 FL (9.6-12.0); Monocytes % 6.2 % (1.7-12.7); Neutrophils % 67.6 % (38.7-73.9); Platelet Count 302 T/CUMM (130-400); Red Blood Count 3.44 MC/CUMM (3.8-5.5); Red Cell Distribution Width 14.2 % (9.3-17.3); White Blood Count 8.4 T/CUMM (4-12)
[2021-02-03 06:05] LABS: Osmolality,Calculated 279.5 MOS/KG (273-304); Potassium 3.4 MMOL/L (3.5-5.1)
[2021-02-03] MEDS: ISOSORBIDE MONONITRATE 30 MG TABLET PO SCH (08:23)
[2021-02-03] MEDS: ASPIRIN CHEW 81 MG TABLET PO SCH (08:23)
[2021-02-03] MEDS: CLOPIDOGREL 75 MG TABLET PO SCH (08:24)
[2021-02-03] MEDS: PANTOPRAZOLE 40 MG TABLET PO SCH (08:24)
[2021-02-03] MEDS: INSULIN LISPRO 100 UNIT/ML SUBCUT SCH ×4 (08:31→21:22)
[2021-02-03] MEDS: FUROSEMIDE 80 MG TABLET PO SCH (10:14)
[2021-02-03] MEDS: HEPARIN 5,000 UNIT/1 ML VIAL SUBCUT SCH ×2 (11:05→22:55)
[2021-02-04 07:09] LABS: Basophils # 0.1 10*3/uL (0.0-0.2); Basophils % 0.8 % (0.0-0.8); Eosinophils # 0.3 10*3/uL (0.0-0.87); Eosinophils % 4.7 % (0.00-10.9); Hematocrit 32.7 VOL% (42.0-52.0); Hemoglobin 10.2 GM/DL (14.0-18.0); Immature Granulocytes % 0.3 %; Immature Granulocytes Absolute 0.02 #; Lymphocytes % 31.1 % (21.2-54.2); Mean Corpuscular HGB Conc 31.2 GM/DL (32-36); Mean Corpuscular Volume 90.3 FL (87-102); Mean Platelet Volume 9.8 FL (9.6-12.0); Monocytes % 6.4 % (1.7-12.7); Neutrophils % 56.7 % (38.7-73.9); Platelet Count 316 T/CUMM (130-400); Red Blood Count 3.62 MC/CUMM (3.8-5.5); Red Cell Distribution Width 14.6 % (9.3-17.3); White Blood Count 6.4 T/CUMM (4-12)
[2021-02-04 07:42] LABS: Calcium 8.1 MG/DL (8.5-10.1); Osmolality,Calculated 278.7 MOS/KG (273-304)
[2021-02-04] MEDS: INSULIN LISPRO 100 UNIT/ML SUBCUT SCH ×4 (08:10→20:29)
[2021-02-04] MEDS: CLOPIDOGREL 75 MG TABLET PO SCH (08:40)
[2021-02-04] MEDS: ISOSORBIDE MONONITRATE 30 MG TABLET PO SCH (08:40)
[2021-02-04] MEDS: PANTOPRAZOLE 40 MG TABLET PO SCH (08:40)
[2021-02-04] MEDS: FUROSEMIDE 80 MG TABLET PO SCH (08:40)
[2021-02-04] MEDS: ASPIRIN CHEW 81 MG TABLET PO SCH (08:40)
[2021-02-04] MEDS: HEPARIN 5,000 UNIT/1 ML VIAL SUBCUT SCH ×2 (10:37→23:25)
[2021-02-04] MEDS: SERTRALINE 25 MG TABLET PO SCH (20:29)
[2021-02-05 06:12] LABS: Basophils # 0.1 10*3/uL (0.0-0.2); Basophils % 1.3 % (0.0-0.8); Eosinophils # 0.2 10*3/uL (0.0-0.87); Eosinophils % 4.5 % (0.00-10.9); Hematocrit 35.7 VOL% (42.0-52.0); Hemoglobin 11.3 GM/DL (14.0-18.0); Immature Granulocytes % 0.2 %; Immature Granulocytes Absolute 0.01 #; Lymphocytes # 1.7 10*3/uL (1.4-4.0); Lymphocytes % 31.2 % (21.2-54.2); Mean Corpuscular HGB Conc 31.7 GM/DL (32-36); Mean Corpuscular Volume 89.9 FL (87-102); Mean Platelet Volume 9.6 FL (9.6-12.0); Monocytes % 7.3 % (1.7-12.7); Neutrophils % 55.5 % (38.7-73.9); Platelet Count 294 T/CUMM (130-400); Red Blood Count 3.97 MC/CUMM (3.8-5.5); Red Cell Distribution Width 14.6 % (9.3-17.3); White Blood Count 5.4 T/CUMM (4-12)
[2021-02-05 07:33] LABS: Calcium 8.6 MG/DL (8.5-10.1); Osmolality,Calculated 274.8 MOS/KG (273-304)
[2021-02-05] MEDS: INSULIN LISPRO 100 UNIT/ML SUBCUT SCH ×4 (08:53→21:06)
[2021-02-05] MEDS: FUROSEMIDE 80 MG TABLET PO SCH (13:36)
[2021-02-05] MEDS: ISOSORBIDE MONONITRATE 30 MG TABLET PO SCH (13:36)
[2021-02-05] MEDS: HEPARIN 5,000 UNIT/1 ML VIAL SUBCUT SCH ×2 (13:36→23:26)
[2021-02-05] MEDS: PANTOPRAZOLE 40 MG TABLET PO SCH (13:36)
[2021-02-05] MEDS: ASPIRIN CHEW 81 MG TABLET PO SCH (13:36)
[2021-02-05] MEDS: CLOPIDOGREL 75 MG TABLET PO SCH (13:36)
[2021-02-05] MEDS: SERTRALINE 25 MG TABLET PO SCH (20:47)
[2021-02-06] MEDS: INSULIN LISPRO 100 UNIT/ML SUBCUT SCH ×2 (08:03→11:35)
[2021-02-06] MEDS: ASPIRIN CHEW 81 MG TABLET PO SCH (08:53)
[2021-02-06] MEDS: FUROSEMIDE 80 MG TABLET PO SCH (08:54)
[2021-02-06] MEDS: PANTOPRAZOLE 40 MG TABLET PO SCH (08:54)
[2021-02-06] MEDS: CLOPIDOGREL 75 MG TABLET PO SCH (08:54)
[2021-02-06] MEDS: ISOSORBIDE MONONITRATE 30 MG TABLET PO SCH (08:54)
[2021-02-06 09:09] LABS: Calcium 8.9 MG/DL (8.5-10.1); Osmolality,Calculated 275.8 MOS/KG (273-304); Potassium 4.5 MMOL/L (3.5-5.1)
[2021-02-06 12:25] VITALS: BP 112/54
[2021-02-06] MEDS: HEPARIN 5,000 UNIT/1 ML VIAL SUBCUT SCH (12:57)
== END 2021-02-06 15:00 | DRG 194 ==
LOC: N.ED 09:11 → N.TELES 10:53 → SUATTDRO 10:53 → N.TELES 01-31 04:49
PROVIDERS: ADMIT Internal Medicine; ATTEND Internal Medicine

== ENCOUNTER 2021-04-26 05:48 | Inpatient (IN) ==
[2021-04-26] MEDS ORDERED: ACETAMINOPHEN 325 MG TABLET PO PRN (08:18)
[2021-04-26] MEDS ORDERED: MORPHINE 2 MG/1 ML SYRINGE IV PRN (08:18)
[2021-04-26] MEDS ORDERED: ONDANSETRON 4 MG/2 ML VIAL IV PRN (08:18)
[2021-04-26] MEDS ORDERED: GLUCAGON 1 MG VIAL IM PRN (08:18)
[2021-04-26] MEDS ORDERED: DEXTROSE 50% 25 GM/50 ML SYRINGE IV PRN (08:23)
[2021-04-26 09:00] LABS: Basophils % 0.1 % (0.0-0.8); Eosinophils % 0.1 % (0.00-10.9); Hematocrit 34.3 VOL% (42.0-52.0); Hemoglobin 10.9 GM/DL (14.0-18.0); Immature Granulocytes % 0.5 %; Immature Granulocytes Absolute 0.07 #; Lymphocytes # 0.8 10*3/uL (1.4-4.0); Mean Corpuscular HGB Conc 31.8 GM/DL (32-36); Mean Corpuscular Volume 89.3 FL (87-102); Mean Platelet Volume 10.2 FL (9.6-12.0); Monocytes % 5.1 % (1.7-12.7); Neutrophils % 89.2 % (38.7-73.9); Platelet Count 288 T/CUMM (130-400); Red Blood Count 3.84 MC/CUMM (3.8-5.5); Red Cell Distribution Width 15.1 % (9.3-17.3); White Blood Count 15.5 T/CUMM (4-12)
[2021-04-26 09:21] LABS: INR 1.1; PT Patient Result 12.5 SECS (10.5-12.0); Partial Thromboplastin Time 28.1 SECS (23.8-32.1)
[2021-04-26 09:30] LABS: Albumin 3.1 G/DL (3.4-5.0); Bilirubin,Total 1.2 MG/DL (0.20-1.00); Calcium 9.3 MG/DL (8.5-10.1); Osmolality,Calculated 291.7 MOS/KG (273-304); Potassium 3.9 MMOL/L (3.5-5.1); Total Protein 7.7 G/DL (6.4-8.2)
[2021-04-26] MEDS: PANTOPRAZOLE 40 MG TABLET PO SCH (10:16)
[2021-04-26] MEDS: PIPERACILLIN/TAZOBACTAM 3,375 MG in SODIUM CHLORIDE 0.9% 100 ML IV SCH ×2 (10:16→18:25)
[2021-04-26] MEDS ORDERED: NITROGLYCERIN SL 0.4 MG TABLET SL PRN (11:30)
[2021-04-26] MEDS ORDERED: LACTULOSE 20 GM/30 ML UDCUP PO PRN (11:30)
[2021-04-26] MEDS: INSULIN LISPRO 100 UNIT/ML SUBCUT SCH ×3 (12:22→20:11)
[2021-04-26] MEDS: SODIUM CHLORIDE 0.9% 1,000 ML IV SCH (13:17)
[2021-04-26] MEDS: CALCIUM CARBONATE CHEW 500 MG TABLET PO SCH ×2 (16:25→20:35)
[2021-04-26] MEDS: DOCUSATE/SENNA 50-8.6 MG TABLET PO SCH (20:35)
[2021-04-26] MEDS: ATORVASTATIN 80 MG TABLET PO SCH (20:35)
[2021-04-27] MEDS: PIPERACILLIN/TAZOBACTAM 3,375 MG in SODIUM CHLORIDE 0.9% 100 ML IV SCH ×3 (02:15→17:18)
[2021-04-27 05:19] LABS: Basophils % 0.2 % (0.0-0.8); Eosinophils # 0.1 10*3/uL (0.0-0.87); Eosinophils % 0.6 % (0.00-10.9); Hematocrit 31.3 VOL% (42.0-52.0); Immature Granulocytes % 0.4 %; Immature Granulocytes Absolute 0.04 #; Lymphocytes # 1.4 10*3/uL (1.4-4.0); Lymphocytes % 13.4 % (21.2-54.2); Mean Corpuscular HGB Conc 31.9 GM/DL (32-36); Mean Corpuscular Volume 89.7 FL (87-102); Mean Platelet Volume 10.7 FL (9.6-12.0); Monocytes % 7.2 % (1.7-12.7); Neutrophils % 78.2 % (38.7-73.9); Platelet Count 237 T/CUMM (130-400); Red Blood Count 3.49 MC/CUMM (3.8-5.5); White Blood Count 10.3 T/CUMM (4-12)
[2021-04-27 05:46] LABS: Calcium 8.9 MG/DL (8.5-10.1); Potassium 3.9 MMOL/L (3.5-5.1); Risk Ratio 2.03; VLDL Cholesterol 12.4 MG/DL
[2021-04-27] MEDS: MULTIVITAMIN (BEROCCA) TABLET PO SCH (08:46)
[2021-04-27] MEDS: CALCIUM CARBONATE CHEW 500 MG TABLET PO SCH ×3 (08:46→21:01)
[2021-04-27] MEDS: PANTOPRAZOLE 40 MG TABLET PO SCH (08:47)
[2021-04-27] MEDS: ISOSORBIDE MONONITRATE 30 MG TABLET PO SCH (08:47)
[2021-04-27] MEDS: INSULIN LISPRO 100 UNIT/ML SUBCUT SCH ×4 (10:53→20:08)
[2021-04-27] MEDS: SODIUM CHLORIDE 0.9% 1,000 ML IV SCH (14:44)
[2021-04-27] MEDS: ATORVASTATIN 80 MG TABLET PO SCH (21:00)
[2021-04-27] MEDS: DOCUSATE/SENNA 50-8.6 MG TABLET PO SCH (21:03)
[2021-04-28] MEDS: PIPERACILLIN/TAZOBACTAM 3,375 MG in SODIUM CHLORIDE 0.9% 100 ML IV SCH ×3 (01:20→19:22)
[2021-04-28 05:40] LABS: Basophils % 0.1 % (0.0-0.8); Eosinophils % 0.5 % (0.00-10.9); Hematocrit 28.9 VOL% (42.0-52.0); Hemoglobin 9.3 GM/DL (14.0-18.0); Immature Granulocytes % 0.6 %; Immature Granulocytes Absolute 0.05 #; Mean Corpuscular HGB Conc 32.2 GM/DL (32-36); Mean Corpuscular Volume 89.5 FL (87-102); Mean Platelet Volume 10.5 FL (9.6-12.0); Monocytes % 8.3 % (1.7-12.7); Neutrophils % 79.5 % (38.7-73.9); Platelet Count 230 T/CUMM (130-400); Red Blood Count 3.23 MC/CUMM (3.8-5.5); Red Cell Distribution Width 14.8 % (9.3-17.3); White Blood Count 8.6 T/CUMM (4-12)
[2021-04-28 06:10] LABS: Calcium 8.3 MG/DL (8.5-10.1); Osmolality,Calculated 288.2 MOS/KG (273-304)
[2021-04-28] MEDS: INSULIN LISPRO 100 UNIT/ML SUBCUT SCH ×4 (07:30→21:56)
[2021-04-28] MEDS: MULTIVITAMIN (BEROCCA) TABLET PO SCH (09:35)
[2021-04-28] MEDS: ISOSORBIDE MONONITRATE 30 MG TABLET PO SCH (09:35)
[2021-04-28] MEDS: PANTOPRAZOLE 40 MG TABLET PO SCH (09:35)
[2021-04-28] MEDS: CALCIUM CARBONATE CHEW 500 MG TABLET PO SCH ×3 (09:52→22:00)
[2021-04-28] MEDS: DOCUSATE/SENNA 50-8.6 MG TABLET PO SCH (22:00)
[2021-04-28] MEDS: ATORVASTATIN 80 MG TABLET PO SCH (22:00)
[2021-04-29] MEDS: PIPERACILLIN/TAZOBACTAM 3,375 MG in SODIUM CHLORIDE 0.9% 100 ML IV SCH ×2 (02:35→09:26)
[2021-04-29 06:33] LABS: Basophils % 0.1 % (0.0-0.8); Eosinophils % 0.2 % (0.00-10.9); Hematocrit 32.4 VOL% (42.0-52.0); Hemoglobin 10.3 GM/DL (14.0-18.0); Immature Granulocytes % 0.5 %; Immature Granulocytes Absolute 0.05 #; Lymphocytes # 0.6 10*3/uL (1.4-4.0); Lymphocytes % 5.8 % (21.2-54.2); Mean Corpuscular HGB Conc 31.8 GM/DL (32-36); Mean Corpuscular Volume 87.3 FL (87-102); Mean Platelet Volume 10.1 FL (9.6-12.0); Monocytes % 6.1 % (1.7-12.7); NRBC # 0.02 10*3/uL; Neutrophils % 87.3 % (38.7-73.9); Platelet Count 280 T/CUMM (130-400); Red Blood Count 3.71 MC/CUMM (3.8-5.5); Red Cell Distribution Width 14.9 % (9.3-17.3); White Blood Count 10.2 T/CUMM (4-12)
[2021-04-29 07:08] LABS: Calcium 8.8 MG/DL (8.5-10.1); Osmolality,Calculated 293.8 MOS/KG (273-304); Potassium 3.9 MMOL/L (3.5-5.1)
[2021-04-29] MEDS: INSULIN LISPRO 100 UNIT/ML SUBCUT SCH ×2 (07:30→12:01)
[2021-04-29] MEDS: ISOSORBIDE MONONITRATE 30 MG TABLET PO SCH (09:23)
[2021-04-29] MEDS: CALCIUM CARBONATE CHEW 500 MG TABLET PO SCH (09:23)
[2021-04-29] MEDS: PANTOPRAZOLE 40 MG TABLET PO SCH (09:23)
[2021-04-29] MEDS: MULTIVITAMIN (BEROCCA) TABLET PO SCH (09:23)
[2021-04-29] MEDS: SODIUM CHLORIDE 0.9% 1,000 ML IV SCH (09:28)
[2021-04-29 11:33] VITALS: BP 141/80
== END 2021-04-29 13:02 ==
LOC: N.5E → SUATTDRO 05:55
PROVIDERS: ADMIT Internal Medicine; ATTEND Internal Medicine

== ENCOUNTER 2021-05-15 20:06 | Inpatient (IN) ==
[2021-05-15 20:27] LABS: Basophils % 0.1 % (0.0-0.8); Hematocrit 37.3 VOL% (42.0-52.0); Hemoglobin 11.4 GM/DL (14.0-18.0); Immature Granulocytes % 0.9 %; Immature Granulocytes Absolute 0.29 #; Lymphocytes # 0.2 10*3/uL (1.4-4.0); Lymphocytes % 0.7 % (21.2-54.2); Mean Corpuscular HGB Conc 30.6 GM/DL (32-36); Mean Corpuscular Volume 92.6 FL (87-102); Mean Platelet Volume 10.1 FL (9.6-12.0); Monocytes % 1.8 % (1.7-12.7); Neutrophils % 96.5 % (38.7-73.9); Platelet Count 248 T/CUMM (130-400); Red Blood Count 4.03 MC/CUMM (3.8-5.5); Red Cell Distribution Width 18.3 % (9.3-17.3); White Blood Count 33.1 T/CUMM (4-12)
[2021-05-15 20:37] LABS: INR 1.7; PT Patient Result 18.8 SECS (10.5-12.0)
[2021-05-15] MEDS ORDERED: ONDANSETRON 4 MG/2 ML VIAL IV STA (20:44)
[2021-05-15] MEDS ORDERED: HYDROmorphone 2 MG/1 ML VIAL IV STA (20:44)
[2021-05-15] MEDS ORDERED: PANTOPRAZOLE 40 MG VIAL IV STA (20:44)
[2021-05-15 20:47] LABS: Albumin 2.5 G/DL (3.4-5.0); Bilirubin,Total 6.6 MG/DL (0.20-1.00); Calcium 8.3 MG/DL (8.5-10.1); Osmolality,Calculated 296.7 MOS/KG (273-304); Potassium 5.7 MMOL/L (3.5-5.1); Total Protein 6.9 G/DL (6.4-8.2)
[2021-05-15 20:50] LABS: Band Neutrophils 2 % (0-10); Burr Cells 1+; Poikilocytosis 1+; Segmented Neutrophils 97 % (50-85); Total Cells Counted 100
[2021-05-15 20:51] LABS: Hypochromia 1+; Platelet Estimate Normal; Polychromasia Few
[2021-05-15] MEDS ORDERED: SODIUM CHLORIDE 0.9% 500 ML IV STA (21:12)
[2021-05-15] MEDS ORDERED: PIPERACILLIN/TAZOBACTAM 3,375 MG in SODIUM CHLORIDE 0.9% 100 ML IV STA (21:59)
[2021-05-15] MEDS ORDERED: ACETAMINOPHEN 325 MG TABLET PO PRN (22:09)
[2021-05-15] MEDS ORDERED: guaiFENesin/DM ER 600-30 MG TABLET PO PRN (22:09)
[2021-05-15] MEDS ORDERED: ZALEPLON 5 MG CAPSULE PO PRN (22:09)
[2021-05-15] MEDS ORDERED: MORPHINE 2 MG/1 ML SYRINGE IV PRN (22:09)
[2021-05-15] MEDS ORDERED: hydrALAZINE 20 MG/1 ML VIAL IV PRN (22:09)
[2021-05-15] MEDS ORDERED: ONDANSETRON 4 MG/2 ML VIAL IV PRN (22:09)
[2021-05-15] MEDS ORDERED: ALBUTEROL/IPRATROPIUM 3 ML NEB RESP TX PRN (22:09)
[2021-05-15] MEDS ORDERED: diphenhydrAMINE CAP 25 MG CAPSULE PO PRN (22:09)
[2021-05-15] MEDS ORDERED: NICOTINE 21 MG/24 HR PATCH TRANSDERM PRN (22:09)
[2021-05-15] MEDS ORDERED: GLUCAGON 1 MG VIAL IM PRN (22:09)
[2021-05-15] MEDS ORDERED: DEXTROSE 50% 25 GM/50 ML SYRINGE IV PRN (22:09)
[2021-05-15] MEDS ORDERED: SODIUM POLYSTYRENE SULFATE 15 GM/60 ML BOTTLE PO STA (22:20)
[2021-05-16] MEDS ORDERED: metroNIDAZOLE INJ 500 MG/100 ML PREMIX IV SCH (03:00)
[2021-05-16] MEDS: cefTRIAXone 2,000 MG in SODIUM CHLORIDE 0.9% 100 ML IV SCH (03:07)
[2021-05-16 03:33] LABS: Bacteria,Urine Occasional /HPF (Few); Blood, Urine Negative (Negative); Glucose,Urine (UA) 50 mg/dL (Negative); Ketones,Urine Negative (Negative); Nitrite,Urine Negative (Negative); Protein,Urine >=500 MG/DL; RBC,Urine 3 /HPF (0-4); Renal Epithelial Cells,Urine Occasional /HPF (<1); Sperm,Urine Occasional /HPF (Negative); Squamous Epithelial Cell,Urine Occasional /HPF (0-10); Urine Appearance CLEAR (Clear); Urine Color Amber (Yellow); Urine Specific Gravity 1.032 (1.001-1.035)
[2021-05-16 03:35] LABS: Bilirubin,Urine Small mg/dL (Negative)
[2021-05-16 04:43] LABS: Basophils % 0.1 % (0.0-0.8); Hematocrit 36.8 VOL% (42.0-52.0); Hemoglobin 11.2 GM/DL (14.0-18.0); Immature Granulocytes % 0.9 %; Immature Granulocytes Absolute 0.25 #; Lymphocytes # 0.4 10*3/uL (1.4-4.0); Lymphocytes % 1.6 % (21.2-54.2); Mean Corpuscular HGB Conc 30.4 GM/DL (32-36); Mean Corpuscular Volume 93.9 FL (87-102); Mean Platelet Volume 10.6 FL (9.6-12.0); Monocytes % 1.6 % (1.7-12.7); Neutrophils % 95.8 % (38.7-73.9); Platelet Count 236 T/CUMM (130-400); Red Blood Count 3.92 MC/CUMM (3.8-5.5); Red Cell Distribution Width 18.5 % (9.3-17.3); White Blood Count 27.6 T/CUMM (4-12)
[2021-05-16 05:03] LABS: Hypochromia 1+; Lymphocytes 2 % (20-55); Segmented Neutrophils 98 % (50-85); Total Cells Counted 100
[2021-05-16 05:04] LABS: Acanthocytes Few; Microcytosis 1+; Ovalocytes Slight; Polychromasia Slight; Target Cells Slight
[2021-05-16 05:14] LABS: Albumin 2.2 G/DL (3.4-5.0); Bilirubin,Total 6.7 MG/DL (0.20-1.00); Calcium 8.1 MG/DL (8.5-10.1); Osmolality,Calculated 296.7 MOS/KG (273-304); Thyroid Stimulating Hormone 4.33 uIU/ml (0.358-3.74); Total Protein 6.9 G/DL (6.4-8.2)
[2021-05-16] MEDS ORDERED: DEXTROSE 50% 25 GM/50 ML SYRINGE IV PRN (06:06)
[2021-05-16] MEDS ORDERED: GLUCAGON 1 MG VIAL IM PRN (06:06)
[2021-05-16] MEDS: PANTOPRAZOLE 40 MG VIAL IV SCH ×2 (09:05→21:00)
[2021-05-16] MEDS: DOCUSATE SODIUM 100 MG CAPSULE PO SCH ×2 (09:05→21:00)
[2021-05-16] MEDS: metroNIDAZOLE INJ 500 MG/100 ML PREMIX IV SCH ×2 (10:48→16:30)
[2021-05-16] MEDS: INSULIN LISPRO 100 UNIT/ML SUBCUT SCH ×4 (11:02→21:00)
[2021-05-16] MEDS: DEXTROSE 5% NACL 0.45% 1,000 ML IV SCH (11:43)
[2021-05-16] MEDS: LACTULOSE 20 GM/30 ML UDCUP PO SCH ×2 (16:30→21:00)
[2021-05-17] MEDS: metroNIDAZOLE INJ 500 MG/100 ML PREMIX IV SCH ×3 (03:07→17:02)
[2021-05-17] MEDS: cefTRIAXone 2,000 MG in SODIUM CHLORIDE 0.9% 100 ML IV SCH (03:08)
[2021-05-17] MEDS: PANTOPRAZOLE 40 MG VIAL IV SCH ×2 (09:54→22:19)
[2021-05-17] MEDS: INSULIN LISPRO 100 UNIT/ML SUBCUT SCH ×3 (09:54→17:03)
[2021-05-17] MEDS: LACTULOSE 20 GM/30 ML UDCUP PO SCH ×2 (09:55→22:19)
[2021-05-17] MEDS: DOCUSATE SODIUM 100 MG CAPSULE PO SCH ×2 (09:56→22:19)
[2021-05-17] MEDS: DEXTROSE 5% NACL 0.45% 1,000 ML IV SCH ×2 (10:09→17:40)
[2021-05-17] MEDS ORDERED: MELATONIN 3 MG TABLET PO PRN (12:25)
[2021-05-17] MEDS ORDERED: diphenhydrAMINE 25 MG/10 ML UDCUP PO PRN (12:29)
[2021-05-18] MEDS: metroNIDAZOLE INJ 500 MG/100 ML PREMIX IV SCH ×3 (02:50→16:19)
[2021-05-18] MEDS: cefTRIAXone 2,000 MG in SODIUM CHLORIDE 0.9% 100 ML IV SCH (04:20)
[2021-05-18] MEDS: INSULIN LISPRO 100 UNIT/ML SUBCUT SCH ×5 (05:25→23:31)
[2021-05-18] MEDS: DOCUSATE SODIUM 100 MG CAPSULE PO SCH ×2 (09:33→23:30)
[2021-05-18] MEDS: PANTOPRAZOLE 40 MG VIAL IV SCH ×2 (09:33→23:29)
[2021-05-18] MEDS: LACTULOSE 20 GM/30 ML UDCUP PO SCH ×2 (09:33→23:30)
[2021-05-18] MEDS: DEXTROSE 5% NACL 0.45% 1,000 ML IV SCH (10:27)
[2021-05-18 10:42] LABS: Basophils % 0.1 % (0.0-0.8); Hematocrit 30.4 VOL% (42.0-52.0); Hemoglobin 9.6 GM/DL (14.0-18.0); Immature Granulocytes % 1.2 %; Immature Granulocytes Absolute 0.21 #; Lymphocytes # 0.5 10*3/uL (1.4-4.0); Lymphocytes % 2.6 % (21.2-54.2); Mean Corpuscular HGB Conc 31.6 GM/DL (32-36); Mean Corpuscular Volume 88.6 FL (87-102); Mean Platelet Volume 11.2 FL (9.6-12.0); Neutrophils % 92.1 % (38.7-73.9); Platelet Count 165 T/CUMM (130-400); Red Blood Count 3.43 MC/CUMM (3.8-5.5); Red Cell Distribution Width 17.8 % (9.3-17.3); White Blood Count 17.9 T/CUMM (4-12)
[2021-05-18 10:50] LABS: INR 1.4; PT Patient Result 15.2 SECS (10.5-12.0); Partial Thromboplastin Time 31.6 SECS (23.8-32.1)
[2021-05-18 10:57] LABS: Acanthocytes Few; Hypochromia 1+; Lymphocytes 2 % (20-55); Platelet Estimate Adequate; Segmented Neutrophils 95 % (50-85); Total Cells Counted 100
[2021-05-18 10:59] LABS: Albumin 1.7 G/DL (3.4-5.0); Bilirubin,Total 8.2 MG/DL (0.20-1.00); Calcium 7.7 MG/DL (8.5-10.1); Osmolality,Calculated 284.2 MOS/KG (273-304); Potassium 5.2 MMOL/L (3.5-5.1); Total Protein 6.1 G/DL (6.4-8.2)
[2021-05-18 11:13] LABS: Free T4 (Free Thyroxine) 1.12 NG/DL (0.76-1.46); Thyroid Stimulating Hormone 2.19 uIU/ml (0.358-3.74)
[2021-05-19] MEDS: metroNIDAZOLE INJ 500 MG/100 ML PREMIX IV SCH ×2 (00:32→12:46)
[2021-05-19] MEDS: cefTRIAXone 2,000 MG in SODIUM CHLORIDE 0.9% 100 ML IV SCH (01:23)
[2021-05-19 06:06] LABS: Basophils % 0.1 % (0.0-0.8); Eosinophils % 0.1 % (0.00-10.9); Hematocrit 30.4 VOL% (42.0-52.0); Hemoglobin 9.8 GM/DL (14.0-18.0); Immature Granulocytes % 0.8 %; Immature Granulocytes Absolute 0.12 #; Lymphocytes # 0.6 10*3/uL (1.4-4.0); Lymphocytes % 3.8 % (21.2-54.2); Mean Corpuscular HGB Conc 32.2 GM/DL (32-36); Mean Corpuscular Volume 88.6 FL (87-102); Mean Platelet Volume 12.3 FL (9.6-12.0); Monocytes % 5.7 % (1.7-12.7); Neutrophils % 89.5 % (38.7-73.9); Platelet Count 149 T/CUMM (130-400); Red Blood Count 3.43 MC/CUMM (3.8-5.5); Red Cell Distribution Width 17.8 % (9.3-17.3); White Blood Count 14.4 T/CUMM (4-12)
[2021-05-19 06:24] LABS: Albumin 1.6 G/DL (3.4-5.0); Bilirubin,Total 8.6 MG/DL (0.20-1.00); Calcium 7.7 MG/DL (8.5-10.1); Osmolality,Calculated 283.2 MOS/KG (273-304); Potassium 5.2 MMOL/L (3.5-5.1); Total Protein 5.9 G/DL (6.4-8.2)
[2021-05-19 06:31] LABS: Hypochromia 1+; Lymphocytes 4 % (20-55); Microcytosis 1+; Nucleated Red Blood Cells 1 (0-5); Platelet Estimate Adequate; Segmented Neutrophils 91 % (50-85); Total Cells Counted 100
[2021-05-19 06:40] LABS: INR 1.4; PT Patient Result 14.9 SECS (10.5-12.0); Partial Thromboplastin Time 34.3 SECS (23.8-32.1)
[2021-05-19] MEDS ORDERED: SODIUM BICARB INJ 100 MEQ in DEXTROSE 5% NACL 0.45% 900 ML IV SCH (08:46)
[2021-05-19] MEDS: INSULIN LISPRO 100 UNIT/ML SUBCUT SCH ×4 (08:59→21:00)
[2021-05-19] MEDS ORDERED: DIAZEPAM 5 MG TABLET PO ONE (09:56)
[2021-05-19] MEDS: DOCUSATE SODIUM 100 MG CAPSULE PO SCH ×2 (10:44→23:37)
[2021-05-19] MEDS: LACTULOSE 20 GM/30 ML UDCUP PO SCH ×3 (10:44→23:41)
[2021-05-19] MEDS: PANTOPRAZOLE 40 MG VIAL IV SCH ×2 (10:45→23:38)
[2021-05-19] MEDS: SODIUM BICARB INJ 100 MEQ in DEXTROSE 5% NACL 0.45% 1,000 ML IV SCH (14:47)
[2021-05-19] MEDS ORDERED: MEROPENEM 500 MG in SODIUM CHLORIDE 0.9% 100 ML IV SCH (16:00)
[2021-05-19] MEDS: MEROPENEM 500 MG in SODIUM CHLORIDE 0.9% 100 ML IV SCH (23:50)
[2021-05-20 07:04] LABS: Basophils % 0.1 % (0.0-0.8); Eosinophils # 0.1 10*3/uL (0.0-0.87); Eosinophils % 0.5 % (0.00-10.9); Hematocrit 29.2 VOL% (42.0-52.0); Hemoglobin 9.7 GM/DL (14.0-18.0); Immature Granulocytes % 0.5 %; Immature Granulocytes Absolute 0.06 #; Lymphocytes # 0.6 10*3/uL (1.4-4.0); Lymphocytes % 5.7 % (21.2-54.2); Mean Corpuscular HGB Conc 33.2 GM/DL (32-36); Mean Corpuscular Volume 86.6 FL (87-102); Mean Platelet Volume 12.1 FL (9.6-12.0); Monocytes % 6.6 % (1.7-12.7); Neutrophils % 86.6 % (38.7-73.9); Platelet Count 165 T/CUMM (130-400); Red Blood Count 3.37 MC/CUMM (3.8-5.5); Red Cell Distribution Width 17.7 % (9.3-17.3); White Blood Count 11.2 T/CUMM (4-12)
[2021-05-20 07:34] LABS: Calcium 7.6 MG/DL (8.5-10.1); Osmolality,Calculated 285.2 MOS/KG (273-304); Potassium 5.2 MMOL/L (3.5-5.1)
[2021-05-20] MEDS: INSULIN LISPRO 100 UNIT/ML SUBCUT SCH ×4 (08:10→21:05)
[2021-05-20] MEDS: PANTOPRAZOLE 40 MG VIAL IV SCH ×2 (10:46→20:46)
[2021-05-20] MEDS: LACTULOSE 20 GM/30 ML UDCUP PO SCH ×3 (11:21→21:06)
[2021-05-20] MEDS: DOCUSATE SODIUM 100 MG CAPSULE PO SCH ×2 (11:22→20:46)
[2021-05-20] MEDS: SODIUM BICARB INJ 100 MEQ in DEXTROSE 5% NACL 0.45% 1,000 ML IV SCH (20:47)
[2021-05-20] MEDS: MEROPENEM 500 MG in SODIUM CHLORIDE 0.9% 100 ML IV SCH (20:48)
[2021-05-21 05:56] LABS: Basophils % 0.2 % (0.0-0.8); Eosinophils # 0.1 10*3/uL (0.0-0.87); Eosinophils % 0.9 % (0.00-10.9); Hematocrit 28.9 VOL% (42.0-52.0); Hemoglobin 9.3 GM/DL (14.0-18.0); Immature Granulocytes % 0.8 %; Immature Granulocytes Absolute 0.07 #; Lymphocytes # 0.7 10*3/uL (1.4-4.0); Lymphocytes % 7.2 % (21.2-54.2); Mean Corpuscular HGB Conc 32.2 GM/DL (32-36); Mean Corpuscular Volume 86.5 FL (87-102); Mean Platelet Volume 11.7 FL (9.6-12.0); Monocytes % 8.3 % (1.7-12.7); Neutrophils % 82.6 % (38.7-73.9); Platelet Count 162 T/CUMM (130-400); Red Blood Count 3.34 MC/CUMM (3.8-5.5); Red Cell Distribution Width 17.6 % (9.3-17.3)
[2021-05-21 06:11] LABS: Calcium 7.2 MG/DL (8.5-10.1); Osmolality,Calculated 292.8 MOS/KG (273-304); Potassium 5.2 MMOL/L (3.5-5.1)
[2021-05-21] MEDS: SODIUM BICARB INJ 100 MEQ in DEXTROSE 5% NACL 0.45% 1,000 ML IV SCH (08:56)
[2021-05-21] MEDS: INSULIN LISPRO 100 UNIT/ML SUBCUT SCH ×3 (08:57→16:22)
[2021-05-21] MEDS: DOCUSATE SODIUM 100 MG CAPSULE PO SCH (09:28)
[2021-05-21] MEDS: PANTOPRAZOLE 40 MG VIAL IV SCH (09:28)
[2021-05-21] MEDS: LACTULOSE 20 GM/30 ML UDCUP PO SCH (10:22)
[2021-05-21 16:45] VITALS: BP 109/59
== END 2021-05-21 16:47 | DRG 720 ==
LOC: EDUNIT# → EDBD → N.ED 20:06 → SUATTDRO 22:09 → N.EDINP 22:09 → N.TELES 05-16 02:50
PROVIDERS: ADMIT Hospitalist; ATTEND Internal Medicine